=== PATIENT | male | born 1950 | race Caucasian/White ===

== ENCOUNTER 2022-03-29 11:33 | Outpatient (REF) | payer MEDICARE, SELFPAY ==
[2022-03-29 15:24] LABS: HCT 45.4 % (40.0-50.0); HGB 15.4 g/dL (13.5-17.5); MCH 30.4 pg (27.0-33.0); MCHC 33.9 % (32.0-36.0); MCV 90 fL (80-95); MPV 9.5 fL (8.0-11.0); Platelet Count 296 10^3/uL (130-400); RBC 5.06 10^6/uL (4.36-5.78); RDW 13.2 % (11.8-14.1); WBC 10.16 10^3/uL (4.4-10.8)
[2022-03-29 16:23] LABS: ALT 29 U/L (16-63); AST 28 U/L (15-37); Albumin 3.7 g/dL (3.4-5.0); Alkaline Phosphatase 92 U/L (46-116); Anion Gap 9.7 mmol/L (3-11); BUN 11 mg/dL (7-18); Bilirubin, Total 0.5 mg/dL (0.2-1.0); CO2 25.3 mmol/L (21.0-32.0); CREATININE 0.9 mg/dL (0.70-1.30); Calcium 9.1 mg/dL (8.5-10.1); Chloride 102 mmol/L (98-107); Glucose 98 mg/dL (74-106); Potassium 3.9 mmol/L (3.5-5.1); Sodium 137 mmol/L (136-145); Total Protein 7.5 g/dL (6.4-8.2)
== END 2022-03-29 11:34 | disposition home or self-care (01) ==
LOC: NCHCN 11:33
PROVIDERS: Visit Provider Nurse Practitioner Family
DX: R03.0 Elevated blood-pressure reading, without diagnosis of hypertension (principal); I49.9 Cardiac arrhythmia, unspecified; Z72.0 Tobacco use
CPT/HCPCS: 80053; 85027

== ENCOUNTER 2022-05-01 10:12 | Outpatient (REF) | payer MEDICARE, SELFPAY ==
[2022-05-01 15:58] LABS: Calculated LDL 142 mg/dL (<100); Cholesterol 209 mg/dL (<200); HDL Cholesterol 29 mg/dL (40-60); Triglyceride 191 mg/dL (<150)
== END 2022-05-01 10:13 | disposition home or self-care (01) ==
LOC: NCHCN 10:12
PROVIDERS: PCP Family Medicine; Visit Provider Nurse Practitioner Family
DX: R03.0 Elevated blood-pressure reading, without diagnosis of hypertension (principal)
CPT/HCPCS: 80061

== ENCOUNTER 2022-05-08 06:56 | Day surgery (SDC) | payer MEDICARE, SELFPAY ==
[2022-05-08 07:16] VITALS: BP 143/79; PULSE 95; RESP 16; TEMP 36.4; O2SAT 98
[2022-05-08] MEDS: Tropicam./Phenyleph. (1/2.5%) 5 ML BTL OD ×3 (07:26→07:39)
--- NOTE | 2022-05-08 07:50 | ANES.PREOP_ITS ---
General Info Date of Service Date Performed: 05/08/22 Height: 6 ft Weight: 77.5 kg Body Mass Index (BMI): 23.1 Surgical Procedure: Operation Date: 05/08/22 08:40 Proposed Procedure Side Surgeon p Cataract Extraction with IOL Implant Right Ambrose Ba MD Meds Allergies and Home Medications Allergies Allergy/AdvReac Type Severity Reaction Status Date / Time poison papa extract Allergy Severe Skin Rash Unverified 05/08/22 07:15 Home Medication Medication Instructions Recorded clonidine HCl 0.1 mg tablet 0.1 mg PO DAILY PRN 05/04/22 Current Visit Medications: Current Medications Generic Name Dose Route Start Last Admin Trade Name Freq PRN Reason Stop Dose Admin Acetaminophen 1,000 mg 05/08/22 06:00 Acetaminophen 500 Mg Tab PO Q4H PRN PRN Miscellaneous Medication 0 ml 05/08/22 06:00 Prednisolone 1%, Moxifloxacin 0.5%, Nepafenac 0.1% 5ml Btl OD DIRECTED [facility] Miscellaneous Medication 0 ml 05/08/22 06:00 05/08/22 07:39 Tropicam./Phenyleph. (1/2.5%) 5 Ml Btl OD 1 drp DIRECTED DARRYL Administration Tetracaine HCl 0 ml 05/08/22 06:00 Tetracaine 0.5% 4 Ml Btl OD DIRECTED [facility] Medical History Medical History (Updated 05/08/22 @ 08:01 by Ambrose Ba MD) Cataract Elevated BP without diagnosis of hypertension Tobacco Smoking/Tobacco Use Status: Current every day Tobacco Type: cigarettes Alcohol Alcohol Intake: never Substance Use Substance use: Never Substance use type: does not use Vital Signs and Lab Results Vital Signs Most Recent Vital Signs in EMR: Most Recent Vital Signs Temp Pulse Resp BP Pulse Ox 36.4 C L 95 H 16 143/79 H 98 05/08/22 07:16 05/08/22 07:16 05/08/22 07:16 05/08/22 07:16 05/08/22 07:16 Lab Results Blood Type / Crossmatch: No Data to Display Complete Blood Count: No Data to Display Complete Metabolic Panel: No Data to Display Liver Function Panel: No Data to Display Coagulation Panel: No Data to Display Cardiac Panel: No Data to Display Arterial Blood Gas: No Data to Display Venous Blood Gas: No Data to Display Pancreas Panel: No Data to Display Thyroid Panel: No Data to Display Infectious Disease: No Data to Display Blood Cultures: No Data to Display Toxicology Panel: No Data to Display Anesthesia Assessment and Plan Anesthesia History Personal History: No History of General Anesthesia Family History: No Family History of Anesthesia Complications Exercise Tolerance Exercise Tolerance: Metabolic Equivalents>4 Pertinent Negatives Pertinent Negatives: No Symptoms of GERD, No Major Cardiovascular Symptoms or Complaints and No Major Pulmonary Symptoms or Complaints Cardiac & Pulmonary Exam Cardiac Exam: Normal S1/S2 Heart Sounds Pulmonary Exam: Clear Bilateral Breath Sounds Implantable Cardiac Device Does patient have a Pacemaker or an ICD?: No Airway Exam Known Difficult Airway: No Mallampati Class: 1 Mouth Opening: Normal (> 3cm) Thyromental Distance: Greater than 3 cm Neck Range of Motion: Full ROM Neck Circumference: Normal Teeth Condition: Edentulous ASA Classification ASA Score: ASA 2 Emergency Case?: No NPO Status NPO Status: NPO Clears >2 hours, Solids >8 hours Anesthesia Plan Resuscitation Status: Full Code Anesthesia Technique: MAC Anesthesia Airway Planned: Natural Airway Monitors Used: Standard Monitors
[2022-05-08 07:52] VITALS: BMI 23.1
[2022-05-08] MEDS: Tetracaine 0.5% 4 ML BTL OD (08:20)
[2022-05-08] MEDS: Balanced Salt Soln.-PLUS 500 ML BAG (08:21)
[2022-05-08] MEDS: Lidocaine 2% Jelly 6 ML SYR (08:22)
[2022-05-08] MEDS: Povidone-Iodine Ophth 30 ML BTL (08:23)
--- NOTE | 2022-05-08 08:39 | PDOC.DSDIS_ITS ---
Discharge Plan Disposition Patient Disposition: HOME Condition: Good Discharge Details Attending Provider: Ambrose Ba Primary Care Provider: José Miguel Torres [place] Meds and New Rx's Prescriptions: No Action clonidine HCl 0.1 mg Tablet 0.1 mg PO DAILY PRN Discharge Instructions Stand Alone Forms: Post-op Topical Cataract, Sami Rojas (DSU) Discharge Orders Discharge Orders: Discharge Order (Routine); Ordered 05/08/22 Ordered By: Ambrose Ba DS: Diagnosis Discharge Diagnosis (1) Posterior subcapsular age-related cataract, right eye: Status: Resolved (2) Nuclear sclerotic cataract of right eye: Status: Resolved
--- NOTE | 2022-05-08 08:40 | W.PM.OP ---
Date of service: 05/08/22 Time of Service: 08:40 Operative Note Operative Note DATE OF PROCEDURE: 05/08/22 PRE-OP DIAGNOSIS: Nuclear/posterior subcapsular cataract, right eye POST-OP DIAGNOSIS: same PROCEDURE: Cataract extraction using phacoemulsification with intraocular lens implant, right eye SURGEON: Ambrose Ba ANESTHESIA TYPE: Local By Surgeon and MAC Refer to Anesthesia Record ESTIMATED BLOOD LOSS: 0 PATHOLOGY: none sent COMPLICATIONS: None Patient was transported to: same day Patient's condition: stable Implants: Cullen & Cullen/SALO Tecnis [id number] Indications: Progressive visual loss due to cataract, right eye Procedure Description: CATARACT SURGERY OPERATIVE REPORT PREOPERATIVE DIAGNOSIS: 1. Nuclear/posterior subcapsular cataract, right eye POSTOPERATIVE DIAGNOSIS: Same OPERATION: 1. Cataract extraction using phacoemulsification with posterior chamber intraocular lens implant, right eye. IOL: IOL Banana Expert/Model: Cullen & Cullen / SALO Tecnis [id number] IOL Power: + 13.0 diopters IOL Serial Number: [id number] Optic Diameter: 6.0mm Haptic/Overall Diameter: 13.0mm PHACO INFO: Igor Employee [employer] Plansurion Vision System with OZil and Active Fluidics Cumulative Dispersed Energy (CDE): 21.09 seconds SURGEON: Ambrose Ba MD, LYNNE ANESTHESIA: Monitored Anesthesia Care (MAC), with local sub-tenon's anesthetic infiltration COMPLICATIONS: None SPECIMENS: None INDICATIONS FOR PROCEDURE: The patient is a 72-year-old male with history of high myopia who has developed a significant nuclear/posterior subcapsular cataract in the right eye. He feels he is significantly symptomatic that he desires cataract surgery and attempt to improve and maximize his vision. The option of cataract surgery was offered to the patient and he wished to proceed. PROCEDURE: The correct surgical eye was identified and marked as the right eye and the pupil was dilated in the preoperative area using mydriatics and cycloplegics. The dilated pupil size was 7.0 mm. The patient elected to proceed without oral sedation. The patient was brought to the operating room where cardiopulmonary monitoring was instituted and surgical time-out was performed, confirming the correct operative eye and IOL power. Topical anesthesia was administered and ophthalmic povidone-iodine 5% was instilled into the conjunctival fornices. Lidocaine gel was applied to the cornea and the bola-ocular area was prepped with Betadine 10% solution and draped in the usual sterile fashion for intraocular surgery, including an aperture drape. A Tegaderm transparent film dressing was cut in half and used to cover the lashes and lid margins. Care was taken to sequester the lashes and lid margins under the Tegaderm dressing. A lid speculum was placed between the lids of the operative eye and the Igor LuxOR Revalia operating microscope was maneuvered into position. Roger scissors were then used to make a conjunctival buttonhole approximately 6mm posterior to the limbus in the inferonasal quadrant. Blunt dissection was carried out to expose bare sclera, and a blunt-tipped sub-tenon?s anesthesia cannula was introduced and passed posteriorly along the globe where non-preserved plain lidocaine was injected into posterior sub-Tenon?s space. A sideport knife was used to make a paracentesis port inferotemporally. Intraocular phenylephrine/lidocaine was injected into the anterior chamber. The anterior chamber was filled with viscoelastic. A keratome knife was used to construct a 2-plane near-clear corneal tunnel extending 2.0mm into clear cornea superiortemporally. A flap was raised on the anterior capsule and capsulorhexis forceps were used to complete a continuous curvilinear capsulorhexis of 4.8 mm. Constant eye movement was present. A second paracentesis was made to help fixate the eye during capsulorrhexis creation. Balanced salt solution was then used to perform cortical cleaving hydrodissection and nuclear hydrodelineation until the lens could be freely rotated within the capsular bag. The lens nucleus was then disassembled and removed within the capsular bag and iris plane using phacoemulsification. Residual cortical material was removed using the I/A handpiece. The posterior capsule was carefully polished to remove as much residual lens epithelial cells as safely possible. The capsular bag was then inflated and the anterior chamber deepened with viscoelastic. The lens implant described above was inserted into the capsular bag using the SALO [place] Injector. A Kuglen hook was used to dial the IOL into position. Residual viscoelastic was then removed first from posterior to the IOL, then from the anterior chamber using the I/A handpiece. The lens implant was noted to center nicely within the capsular bag. The incisions were stromally hydrated, and the anterior chamber was reformed using BSS. Then 0.5cc of moxifloxacin 1.0mg/ml were injected into the capsular bag and anterior chamber. The incisions were checked with a Weck spear and found to be secure. Several drops of ophthalmic povidone-iodine 5% were then applied to the eye followed by two drops of Imprimis combination prednisolone/moxifloxacin/nepafenac solution. The drapes were removed and a clear plastic protective eye shield was placed over the eye. The patient was then returned to Same Day Surgery in stable condition.
[2022-05-08 08:41] VITALS: BP 125/67; PULSE 82; RESP 16; TEMP 36.3; O2SAT 97
--- NOTE | 2022-05-08 09:13 | W.ANESPOSTOP ---
Postoperative Evaluation Date, Time and Location Date Performed: 05/08/22 Time Performed: 08:50 Patient Location: Day Surgery Unit Vital Signs Most Recent Imported Vital Signs: Most Recent Vital Signs Temp Pulse Resp BP Pulse Ox 36.3 C L 82 16 125/67 97 05/08/22 08:41 05/08/22 08:41 05/08/22 08:41 05/08/22 08:41 05/08/22 08:41 Pain Score Most Recent Pain Score: Most Recent Pain Score Pain Level 0 05/08/22 08:41 Assessment Mental Status: Awake (Alert & Oriented to Patient Baseline) Airway and Respiratory Function: Patent airway with normal (patient baseline) respiratory exam Cardiovascular Function: Hemodynamically Stable Hydration Status: Adequately Hydrated Nausea & Vomiting: No Nausea or Vomiting Pain: Pt. Denies Any Pain Peripheral Nerve Block: Patient did not receive a nerve block
== END 2022-05-08 08:59 | disposition home or self-care (01) ==
PROVIDERS: PCP Family Medicine; Visit Provider Ophthalmology
PROC: (CPT 66984; principal; 2022-05-08 08:30)
DX: H25.041 Posterior subcapsular polar age-related cataract, right eye (principal)
CPT/HCPCS: 66984; V2632

== ENCOUNTER 2022-05-22 08:08 | Day surgery (SDC) | payer MEDICARE, SELFPAY ==
--- NOTE | 2022-05-22 05:10 | W.ANESPRE ---
General Info Date of Service Date Performed: 05/22/22 Height: 6 ft Weight: 77.111 kg Body Mass Index (BMI): 23.0 Surgical Procedure: Operation Date: 05/22/22 09:55 Proposed Procedure Side Surgeon p Cataract Extraction with IOL Implant Left Ambrose Ba MD Meds Allergies and Home Medications Allergies Allergy/AdvReac Type Severity Reaction Status Date / Time poison papa extract Allergy Severe Skin Rash Unverified 05/22/22 08:41 Home Medication Medication Instructions Recorded clonidine HCl 0.1 mg tablet 0.1 mg PO DAILY PRN 05/04/22 atorvastatin 20 mg tablet 20 mg PO HS 05/19/22 Current Visit Medications: Current Medications Generic Name Dose Route Start Last Admin Trade Name Freq PRN Reason Stop Dose Admin Acetaminophen 1,000 mg 05/22/22 06:00 Acetaminophen 500 Mg Tab PO Q4H PRN PRN Miscellaneous Medication 0 ml 05/22/22 06:00 Prednisolone 1%, Moxifloxacin 0.5%, Nepafenac 0.1% 5ml Btl OS DIRECTED DARRYL Miscellaneous Medication 0 ml 05/22/22 06:00 Tropicam./Phenyleph. (1/2.5%) 5 Ml Btl OS DIRECTED DARRYL Tetracaine HCl 0 ml 05/22/22 06:00 Tetracaine 0.5% 4 Ml Btl OS DIRECTED DARRYL PFSH Active Problems Active Problems: Problem Status Onset Code Posterior subcapsular age-related cataract of left eye H25.042 Nuclear sclerotic cataract of left eye H25.12 Nuclear sclerotic cataract of right eye H25.11 Posterior subcapsular age-related cataract, right eye H25.041 Medical History Medical History (Updated 05/21/22 @ 17:58 by Ambrose Ba MD) Cataract Elevated BP without diagnosis of hypertension High cholesterol Surgical History Surgical History (Updated 05/22/22 @ 08:41 by Fadumo Felix) Hx of cataract surgery Tobacco Smoking/Tobacco Use Status: Current every day Tobacco Type: cigarettes Alcohol Alcohol Intake: never Substance Use Substance use: Never Substance use type: does not use Vital Signs and Lab Results Vital Signs Most Recent Vital Signs in EMR: Temp Pulse Resp BP Pulse Ox 36 C L 89 18 122/67 98 05/22/22 08:45 05/22/22 08:45 05/22/22 08:45 05/22/22 08:45 05/22/22 08:45 Lab Results Blood Type / Crossmatch: No Data to Display Complete Blood Count: No Data to Display Complete Metabolic Panel: No Data to Display Liver Function Panel: No Data to Display Coagulation Panel: No Data to Display Cardiac Panel: No Data to Display Arterial Blood Gas: No Data to Display Venous Blood Gas: No Data to Display Pancreas Panel: No Data to Display Thyroid Panel: No Data to Display Infectious Disease: No Data to Display Blood Cultures: No Data to Display Toxicology Panel: No Data to Display Anesthesia Assessment and Plan Anesthesia History Personal History: No History of Anesthesia Complications Family History: No Family History of Anesthesia Complications Exercise Tolerance Exercise Tolerance: Metabolic Equivalents>4 Cardiac & Pulmonary Exam Cardiac Exam: Normal S1/S2 Heart Sounds Pulmonary Exam: Clear Bilateral Breath Sounds Implantable Cardiac Device Does patient have a Pacemaker or an ICD?: No Airway Exam Known Difficult Airway: No Mallampati Class: 1 Mouth Opening: Normal (> 3cm) Thyromental Distance: Greater than 3 cm Neck Range of Motion: Full ROM Neck Circumference: Normal Teeth Condition: Edentulous ASA Classification ASA Score: ASA 2 Emergency Case?: No NPO Status NPO Status: NPO Clears >2 hours, Solids >8 hours Anesthesia Plan Resuscitation Status: Full Code Anesthesia Technique: MAC Anesthesia Airway Planned: Natural Airway Monitors Used: Standard Monitors Preoperative Comments:: 72 yo male for repeat cataract removal. Sig PMHx: HTN, daily smoker. denies interval change. Previous Cat: no MKO. would like to proceed as same.
[2022-05-22 08:40] VITALS: BMI 23.0
[2022-05-22] MEDS: Tropicam./Phenyleph. (1/2.5%) 5 ML BTL OS ×3 (08:43→09:11)
[2022-05-22 08:45] VITALS: BP 122/67; PULSE 89; RESP 18; TEMP 36; O2SAT 98
[2022-05-22] MEDS: Lidocaine 2% Jelly 6 ML SYR (09:41)
[2022-05-22] MEDS: Tetracaine 0.5% 4 ML BTL OS (09:41)
[2022-05-22] MEDS: Balanced Salt Soln.-PLUS 500 ML BAG (09:49)
[2022-05-22] MEDS: Duovisc Viscoelastic System EACH 1 EACH (09:50)
[2022-05-22] MEDS: Povidone-Iodine Ophth 30 ML BTL (09:51)
[2022-05-22] MEDS: Lidocaine 1% Multi-Dose 10 ML VIAL (09:52)
[2022-05-22 10:02] VITALS: BP 112/70; PULSE 82; RESP 16; TEMP 36.6; O2SAT 97
--- NOTE | 2022-05-22 10:03 | PDOC.DSDIS_ITS ---
Discharge Plan Disposition Patient Disposition: HOME Condition: Good Discharge Details Attending Provider: Ambrose Ba Primary Care Provider: José Miguel Torres [place] Meds and New Rx's Prescriptions: No Action clonidine HCl 0.1 mg Tablet 0.1 mg PO DAILY PRN atorvastatin 20 mg Tablet 20 mg PO HS Discharge Instructions Stand Alone Forms: Post-op Topical Cataract, Sami Rojas (DSU) Discharge Orders Discharge Orders: Discharge Order (Routine); Ordered 05/22/22 Ordered By: Ambrose Ba DS: Diagnosis Discharge Diagnosis (1) Nuclear sclerotic cataract of left eye: Status: Resolved (2) Posterior subcapsular age-related cataract of left eye: Status: Resolved
--- NOTE | 2022-05-22 10:03 | ROE_ITS ---
Date of service: 05/22/22 Time of Service: 10:03 Operative Note Operative Note DATE OF PROCEDURE: 05/22/22 PRE-OP DIAGNOSIS: Nuclear/posterior subcapsular cataract, left eye POST-OP DIAGNOSIS: same PROCEDURE: Cataract extraction using phacoemulsification with intraocular lens implant, left eye SURGEON: Ambrose Ba ANESTHESIA TYPE: Local By Surgeon and MAC Refer to Anesthesia Record PATHOLOGY: none sent COMPLICATIONS: None Patient was transported to: same day Patient's condition: stable Implants: Cullen and Cullen / [employer] Tecnis [id number] Indications: Progressive decreased vision due to cataract, left eye Procedure Description: CATARACT SURGERY OPERATIVE REPORT PREOPERATIVE DIAGNOSIS: 1. Nuclear/posterior subcapsular cataract, left eye POSTOPERATIVE DIAGNOSIS: Same OPERATION: 1. Cataract extraction using phacoemulsification with posterior chamber intraocular lens implant, left eye. IOL: IOL General Practitioner/Model: Cullen & Cullen / SALO Tecnis [id number] IOL Power: + 14.5 diopters IOL Serial Number: [id number] Optic Diameter: 6.0 mm Haptic/Overall Diameter: 13.0 mm PHACO INFO: Igor [employer] Protector [employer] Vision System with OZil and Active Fluidics Cumulative Dispersed Energy (CDE): 15.96 seconds SURGEON: Ambrose Ba MD, LYNNE ANESTHESIA: Monitored A [facility] (MAC), with local sub-tenon's anesthetic infiltration COMPLICATIONS: None SPECIMENS: None INDICATIONS FOR PROCEDURE: The patient is a 72-year-old gentleman with history of diminished visual acuity in both eyes secondary to development of bilateral nuclear/posterior subcapsular cataract. Insert undergone cataract surgery in the right eye and is doing well postoperatively. He now presents for cataract surgery in the left eye. PROCEDURE: The correct surgical eye was identified and marked as the left eye and the pupil was dilated in the preoperative area using mydriatics and cycloplegics. The dilated pupil size was 7.0 mm. The patient elected to proceed without oral sedation. The patient was brought to the operating room where cardiopulmonary monitoring was instituted and surgical time-out was performed, confirming the correct operative eye and IOL power. Topical anesthesia was administered and ophthalmic povidone-iodine 5% was instilled into the conjunctival fornices. Lidocaine gel was applied to the cornea and the bola-ocular area was prepped with Betadine 10% solution and draped in the usual sterile fashion for intraocular surgery, including an aperture drape. A Tegaderm transparent film dressing was cut in half and used to cover the lashes and lid margins. Care was taken to sequester the lashes and lid margins under the Tegaderm dressing. A lid speculum was placed between the lids of the operative eye and the Igor LuxOR Revalia operating microscope was maneuvered into position. Roger scissors were then used to make a conjunctival buttonhole approximately 6mm posterior to the limbus in the inferonasal quadrant. Blunt dissection was carried out to expose bare sclera, and a blunt-tipped sub-tenon?s anesthesia cannula was introduced and passed posteriorly along the globe where non- preserved plain lidocaine was injected into posterior sub-Tenon?s space. A sidep ort knife was used to make a paracentesis port superiorly/superiortemporally. Intraocular phenylephrine/lidocaine was injected int the anterior chamber.. The anterior chamber was filled with viscoelastic. A keratome knife was used to construct a 2-plane near-clear corneal tunnel extending 2.0mm into clear cornea temporally. A flap was raised on the anterior capsule and capsulorhexis forceps were used to complete a continuous curvilinear capsulorhexis of 5.0 mm. Balanced salt solution was then used to perform cortical cleaving hydrodissection and nuclear hydrodelineation until the lens could be freely rotated within the capsular bag. The lens nucleus was then disassembled and removed within the capsular bag and iris plane using phacoemulsification. Residual cortical material was removed using the 45-degree angled silicone I/A tip with 0.3mm port. The posterior capsule was carefully polished to remove as much residual lens epithelial cells as safely possible. The capsular bag was then inflated and the anterior chamber deepened with viscoelastic. The lens implant described above was inserted into the capsular bag using the SALO [place] Injector. A Kuglen hook was used to dial the IOL into position. Residual viscoelastic was then removed first from posterior to the IOL, then from the anterior chamber using the I/A handpiece. The lens implant was noted to center nicely within the capsular bag. The incisions were stromally hydrated, and the anterior chamber was reformed using BSS. Then 0.5cc of moxifloxacin 1.0mg/ml were injected into the capsular bag and anterior chamber. The incisions were checked with a Weck spear and found to be secure. Several drops of ophthalmic povidone-iodine 5% were then applied to the eye followed by two drops of Imprimis combination prednisolone/moxifloxacin/nepafenac solution. The drapes were removed and a clear plastic protective eye shield was placed over the eye. The patient was then returned to Same Day Surgery in stable c ondition.
--- NOTE | 2022-05-22 10:36 | W.ANESPOSTOP ---
Postoperative Evaluation Date, Time and Location Date Performed: 05/22/22 Time Performed: 10:15 Patient Location: Day Surgery Unit Vital Signs Most Recent Imported Vital Signs: Most Recent Vital Signs Temp Pulse Resp BP Pulse Ox 36.6 C 82 16 112/70 97 05/22/22 10:02 05/22/22 10:02 05/22/22 10:02 05/22/22 10:02 05/22/22 10:02 Pain Score Most Recent Pain Score: Most Recent Pain Score Pain Level 0 05/22/22 10:02 Assessment Mental Status: Awake (Alert & Oriented to Patient Baseline) Airway and Respiratory Function: Patent airway with normal (patient baseline) respiratory exam Cardiovascular Function: Hemodynamically Stable Hydration Status: Adequately Hydrated Nausea & Vomiting: No Nausea or Vomiting Pain: Pt. Denies Any Pain Peripheral Nerve Block: Patient did not receive a nerve block
== END 2022-05-22 10:26 | disposition home or self-care (01) ==
PROVIDERS: PCP Family Medicine; Visit Provider Ophthalmology
PROC: (CPT 66984; principal; 2022-05-22 09:45)
DX: H25.042 Posterior subcapsular polar age-related cataract, left eye (principal); E78.00 Pure hypercholesterolemia, unspecified
CPT/HCPCS: 66984; V2632

== ENCOUNTER 2023-05-10 19:06 | Outpatient (REF) | payer MEDICARE, SELFPAY ==
[2023-05-10 16:30] LABS: Absolute Eosinophil Count 0.13 10^3/uL (0.0-0.7); Absolute Monocyte Count 1.44 10^3/uL (0.1-0.8); Basophils % 0.6; Eosinophils % 0.8; HCT 39.8 % (40.0-50.0); HGB 12.9 g/dL (13.5-17.5); Immature Grans % 0.6; Lymphocytes % 12.6; MCH 28.2 pg (27.0-33.0); MCHC 32.4 % (32.0-36.0); MCV 87 fL (80-95); Monocytes % 8.6; Neutrophils % 76.8; Platelet Count 396 10^3/uL (130-400); RBC 4.57 10^6/uL (4.36-5.78); RDW-SD 44.6 fL; WBC 16.69 10^3/uL (4.4-10.8)
[2023-05-10 16:33] LABS: Absolute Neutrophil Count 12.82 10^3/uL (1.2-6.7)
[2023-05-10 16:49] LABS: ALT 23 U/L (16-63); AST 16 U/L (15-37); Alkaline Phosphatase 84 U/L (46-116); Anion Gap 8.8 mmol/L (3-11); BUN 10 mg/dL (7-18); Bilirubin, Total 0.5 mg/dL (0.2-1.0); CO2 27.2 mmol/L (21.0-32.0); CREATININE 0.9 mg/dL (0.70-1.30); Calcium 8.7 mg/dL (8.5-10.1); Calculated LDL 52 mg/dL (<100); Chloride 102 mmol/L (98-107); Cholesterol 98 mg/dL (<200); Estimated GFR 90.74 (mL/min/1.73m2); Glucose 115 mg/dL (74-106); HDL Cholesterol 29 mg/dL (40-60); Potassium 4.5 mmol/L (3.5-5.1); Sodium 138 mmol/L (136-145); Total Protein 6.6 g/dL (6.4-8.2); Triglyceride 86 mg/dL (<150)
[2023-05-14 09:02] LABS: PSA, Screening 1.2 ng/mL (<=6.5)
== END 2023-05-10 19:07 | disposition home or self-care (01) ==
LOC: NCHCN 19:06
PROVIDERS: PCP Family Medicine; Visit Provider Nurse Practitioner Family
DX: E78.5 Hyperlipidemia, unspecified (principal); R63.4 Abnormal weight loss; R03.0 Elevated blood-pressure reading, without diagnosis of hypertension; F17.210 Nicotine dependence, cigarettes, uncomplicated; Z12.5 Encounter for screening for malignant neoplasm of prostate
CPT/HCPCS: 80053; 80061; 84153; 84443; 85025

== ENCOUNTER → 2023-05-30 01:12 | Outpatient (CLI) | payer MEDICARE, SELFPAY ==
--- NOTE | 2023-05-30 | DI.CT_ITS ---
Exam(s) CT CHEST/ABD/PEL W EXAM: CT CHEST/ABD/PEL W CLINICAL HISTORY: CONSTIPATION, WT LOSS, TOBACCO USE, ? METS. TECHNIQUE: Imaging Protocol: Axial computed tomography images with coronal and sagittal reformatted images were created and reviewed CONTRAST MATERIAL: Intravenous: Omnipaque 350 Contrast volume:100 ml Oral: yes COMPARISON: No exams were available for comparison FINDINGS: CHEST: Tracheobronchial tree: Patent where visualized. Pulmonary parenchyma: No consolidation or dominant measurable mass. Wqbb-[id number]-zfrdvelq emphysematous c hanges. No suspicious pulmonary nodules. Pleura: No effusion or pneumothorax. Lymph nodes: Within normal limits. Aorta: Thoracic portion non-dilated. Severe atherosclerotic changes. Heart: Left ventricular and left atrial dilatation. Coronary artery calcifications. No pericardial effusion. Esophagus: Mid to distal esophagus markedly thickened, over 13 cm and cm length. There is contrast s een within the esophagus. The lumen is markedly irregular. Finding may indicate severe esophagitis malignancy not excluded. No varices identified. Bones: Degenerative changes. No lytic or blastic lesions.No compression fractures. ABDOMEN and PELVIS: Liver: Normal density. No measurable mass. Gallbladder and biliary tract: No evidence of stones or wall thickening. No biliary dilatation. Pancreas: Normal density, no abnormal calcifications or inflammatory process. Spleen: Normal. Kidneys: Normal size, contour and axis. No radiodense stones or obstructive uropathy. No suspicious m asses seen. Adrenal glands: Left adrenal gland mildly prominent without visible focal mass. Aorta: Abdominal portion non-dilated. Severe atherosclerotic changes. Lymph nodes: Within normal limits. Soft tissues: Unremarkable. Bladder: Unremarkable. Bowel: No obstruction or bowel wall thickening. Large quantity of stool. No colonic mass visible. Peritoneal cavity: No ascites. No focal collection or mesenteric inflammatory response. Bones: Degenerative disc changes and facet degenerative changes in the spine. Reproductive organs: Within normal limits. IMPRESSION: Marked wall thickening and mucosal irregularity involving the mid to distal esophagus. Contrast is se en within the saphenous indicating reflux. Findings could indicate severe esophagitis. Malignancy not excluded. No evidence of metastatic disease in the chest abdomen part or pelvis. Large quantity of stool consistent with constipation. RADIATION DOSE DELIVERED: 1,371.01mGy.cm Total DLP DATA REPOSITORY: All CT scans at this facility are submitted to the National Radiology Data Registry (NRDR) Dose Index Registry (DIR) with the [employer] (ACR). RADIATION OPTIMIZATION: All CT scans at this facility use at least one of these dose optimization te chniques: automated exposure control; mA and/or kV adjustment per patient size (includes targeted exa ms where dose is matched to clinical indication); or iterative reconstruction.
[2023-05-30] MEDS: Barium Sulfate 2% W/V-Creamy Vanilla Smoothie 450 ML BTL PO (08:58)
[2023-05-30] MEDS: Omnipaque 350 MG/ML 500 ML BTL-Imaging package IJ (11:01)
[2023-05-30] MEDS: Normal Saline Flush 10 ML SYR IVP (11:02)
== END ==
PROVIDERS: PCP Family Medicine; Visit Provider Physician Assistant
DX: K59.00 Constipation, unspecified (principal); R93.3 Abnormal findings on diagnostic imaging of other parts of digestive tract; F17.210 Nicotine dependence, cigarettes, uncomplicated; R63.4 Abnormal weight loss
CPT/HCPCS: 74177; 71260

== ENCOUNTER → 2023-06-06 13:00 | Outpatient (BNVA) | payer MEDICARE, SELFPAY | PROVIDERS: PCP Family Medicine; Referring Provider Nurse Practitioner Family; Visit Provider Surgery | DX: R63.4 Abnormal weight loss (principal) | CPT/HCPCS: 99203 ==

== ENCOUNTER 2023-06-20 09:22 | Day surgery (SDC) | payer MEDICARE, SELFPAY ==
--- NOTE | 2023-06-20 06:58 | W.PM.PROGNOT ---
Date of Service Date of service: 06/20/23 Time of Service: 10:34 Assessment and Plan Assessment and plan (1) Weight loss, abnormal: Status: Acute Assessment and plan: From chart: Based on the unanticipated weight loss, and abnormality seen on the CAT scan, I think that esophageal cancer is probably the leading diagnosis here.? The change in his bowel habits are interesting, but seems probably more functional rather than obstructive in nature.? We talked about the role of EGD as well as colonoscopy and the definitive work-up.? I think the most important thing right now is to expedite the EGD.? In that regards, we can make arrangements to schedule him with one of my partners as we can accommodate that around his travel schedule complicate his bowel prep quite a bit.? Assuming the EGD makes a diagnosis, that is probably reasonable to forego colonoscopy at that point. I discussed the proceedure with the patient in detail as well as the possible risks, benefits and complications. I did review his CT scan today as well. Risks, benefits and complications have been reviewed. Complications include but are not limited to bleeding, pain, perforation, sore throat, aspiration, and adverse reaction to the medications. Questions were entertained and answered to their satisfaction and they wished to proceed. No guarantees were given or implied. Proceed with EGD under sedation Subjective Subjective Interval history since last seen: From chart: It is very nice to meet Joel in the office.? He is 73 years old, and he is referred here for unanticipated weight loss.? He tells me he was in his usual state of health up until about a year ago, when a friend became diagnosed with cancer.? Around that time, the patient experienced a significant amount of stress at home, and feels like he was not taking care of himself.? He thinks over the past few months, he has lost about 30 pounds.? He denies melena, hematochezia, dyspepsia or dysphagia.? He has been experiencing a little bit of constipation over the past few months as well.? Whereas he used to move his bowels every day 1 single time per day, now he has bowel movements every 2 to 3 days, and sometimes requires the assistance of a laxative.? He denies any family history of gastrointestinal diseases. I was able to review his CT scan today.? There does appear to be significant pathology at the gastroesophageal junction. He is an active tobacco smoker, and is currently smoking a little less than a pack a day. Patient is seen in same-day surgery prior to his procedure. He has not had any new symptoms. he denies dysphagia. I reviewed CT scan today. Exam Const General: cooperative, comfortable and no acute distress Nutritional Appearance: thin Orientation: alert and oriented x3 HENMT Head: normocephalic and atraumatic Resp Effort & Inspection: normal respiratory effort Auscultation: clear to auscultation bilaterally Cardio Rate: regular rate Rhythm: regular rhythm GI Inspection: normal to inspection Palpation: soft, no hepatosplenomegaly and nontender Time Spent with Patient Time Spent with Patient: <25 minutes Time was spent: counseling the patient
--- NOTE | 2023-06-20 07:02 | ENDO_ITS ---
Date of service: 06/20/23 Time of Service: 10:54 Endoscopy Report DATE OF PROCEDURE: 06/20/23 PRE-OP DIAGNOSIS: unintentional weight loss POST-OP DIAGNOSIS: other (esophageal mass) PROCEDURE: EGD with biopsies SURGEON: April De Leon ANESTHESIA TYPE: General:No Airway ESTIMATED BLOOD LOSS: 10 PATHOLOGY: other (Bx of esophagus at 40 , 38,35, 32 and 30 cm) COMPLICATIONS: None DISPOSITION: same day INDICATIONS: Mr. Acosta is a pleasant 73-year-old gentleman who comes in to the office with unintentional weight loss and an abnormal appearing CT scan. CT scan is worrisome for malignancy in the esophagus. I reviewed the procedure of EGD with biopsies with him in same-day surgery. We reviewed the possible complications. At the end of our conversation he had a good understanding of the possible complications as well as the procedure. He did not have any more questions and wished to proceed. FINDINGS: The esophagus had a white discharge almost the entire way. From 30 cm down to 40 cm there were multiple large polyps/masses. The largest mass was at the GE junction. They all bled quite easily. Also noted was a little bit of food above the 30 cm josé manuel. PROCEDURE DESCRIPTION: After informed consent was obtained the patient was take to the procedure room and placed in a supine position. Monitors were applied and a time out was done. The patients name, date of , procedure type, allergies to medications and metal in their body was reviewed. A bite block was placed and the patient was sedated. Once sedated and comfortable the gastroscope was advanced through the oropharynx which was grossly normal into the esophagus. There was a white coating to the esophagus suspicious for rudi infection. In the distal esophagus there was a large mass noted. The scope was advanced into the stomach and through the pylorus into the 3rd portion of the duodenum. The duodenum was noted to be normal. The scope was retracted back into the stomach, which was also normal The scope was retroflexed. The cardia and fundus were noted to be normal. There was no hiatal hernia noted. The scope was retracted back into the esophagus and biopsies were done of the mass and esophagus at 40, 38, 35, 32 and 30 cm. The Z line was irregular circumferentially. The GE junction was at 40 cm. The scope was removed and the patient was woken up and taken back to [facility] in stable condition.
--- NOTE | 2023-06-20 07:04 | W.PM.DSUDISC ---
Date of service: 06/20/23 Time of Service: 11:32 Discharge Plan Disposition Patient Disposition: Home Condition: Stable Discharge Details Reason For Visit: unintentional weight loss Attending Provider: April De Leon Primary Care Provider: LALITHA MAR Home Meds and New Rx's Prescriptions: Continued docusate sodium 100 mg tablet 100 mg PO DAILY polyethylene glycol 3350 [Miralax] 17 gram powder in packet 17 g PO DAILY varenicline 0.5 mg (11)- 1 mg (42) tablets,dose pack See Rx Instructions PO PER PKG DIR Rx Instructions: PO PER PKG DIR clonidine HCl 0.1 mg Tablet 0.1 mg PO DAILY PRN atorvastatin 20 mg Tablet 20 mg PO HS Discharge Instructions Instructions: High Protein / High Calorie Diet (DC) Additional Instructions: Findings: There was a mass in the esophagus Follow up: I will call you with the biopsy results Other: I will send referals to thoracic surgery to discuss treatment Diet: high protein diet and soft. Avoid bread and dry beef. Drink 2 Boosts daily Please call if you develop: fevers >101.5 Nausea or Vomiting Abdominal pain that is not transient Rectal bleeding that is more then a tbsp A hard abdomen and inability to pass gas DAY SURGERY UNIT POST ENDOSCOPY INSTRUCTIONS Instructions for everyone who is given Anesthesia: For your safety, please do the following for the next 24 Hours: a. Do not drive or operate dangerous equipment b. Do not drink alcohol beverages or use any recreational drugs for the first 24 hours or while taking pain medications. The medications in your body may have a reaction that can be dangerous. c. Do not make any important decisions or sign any important papers 1. Generally there are no restrictions on your activity after a day or so has gone by, but you may feel a bit fatigued for a few days. 2. After you arrive home you may have a light meal and return to a normal diet as you can tolerate it without feeling sick to your stomach. 3. After surgery, you may feel pain or discomfort. This should be only transient, but if it persists please contact your doctor. 4. If there are any questions regarding the findings of your procedure, please feel free to contact your doctor. 6. If you are unable to contact your doctor with a problem, contact the hospital at [phone]. 7. Continue all your regular medications unless directed otherwise. I understand the above instructions and have no questions. Signature of Patient or Responsible Adult Escort Date/Time Name of Responsible Adult Escort Signature of Nurse Date/Time Stand Alone Forms: Anesthesia Discharge Inst., Sami Rojas (DSU) Activity:: Activity as Tolerated Diet:: see above Discharge Orders Discharge Orders: Discharge Order (Routine); Ordered 06/20/23 Ordered By: April De Leon DS: Diagnosis Discharge Diagnosis (1) Weight loss, abnormal: Status: Acute Asessment and Plan: Patient is seen and examined after their endoscopy. Patient has minimal sore throat. They have been able to tolerate liquids. They do not have any Nausea or Vomiting. They are not having any chest pain or shortness of breath. They have been able to pass gas and are not having any abdominal pain or distention. they have not vomited any blood. The vital signs have been stable-see nursing notes. We discussed findings on their endoscopy We reviewed the importance of lifestyle modifications- see diet recommendations We reviewed any new medications that the patient may be prescribed- see medicine reconciliation. Patient will either be sent a letter with the biopsy results or follow up in the office- see discharge instructions Patient was given explicit instructions for emergency follow up post endoscopy- see discharge instructions Patient verbalized understanding and was discharged in stable and satisfactory condition. See nursing notes.
[2023-06-20 09:25] VITALS: BP 133/70; PULSE 94; RESP 20; TEMP 36.4; O2SAT 99
[2023-06-20] MEDS: Lactated Ringers 1,000 ML 80 ML IV (09:53)
--- NOTE | 2023-06-20 10:15 | W.ANESPRE ---
General Info Date of Service Date Performed: 06/20/23 Height: 5 ft 8 in Weight: 65.317 kg Body Mass Index (BMI): 21.9 Surgical Procedure: Operation Date: 06/20/23 10:05 Proposed Procedure Side Surgeon p Gastroscopy April De Leon MD Meds Allergies and Home Medications Allergies Allergy/AdvReac Type Severity Reaction Status Date / Time poison papa extract Allergy Severe Skin Rash Verified 06/20/23 09:40 Home Medication Medication Instructions Recorded clonidine HCl 0.1 mg tablet 0.1 mg PO DAILY PRN 05/04/22 atorvastatin 20 mg tablet 20 mg PO HS 05/19/22 varenicline 0.5 mg (11)-1 mg (42) See Rx Instructions PO PER PKG DIR 06/04/23 tablets in a dose pack docusate sodium 100 mg tablet 100 mg PO DAILY 06/06/23 polyethylene glycol 3350 17 gram 17 g PO DAILY 06/06/23 oral powder packet (Miralax) Current Visit Medications: Current Medications Generic Name Dose Route Start Last Admin Trade Name Diego PRN Reason Stop Dose Admin Ringer's Solution 1,000 mls @ 80 mls/hr 06/20/23 06:00 06/20/23 09:53 IV 07/19/23 23:59 80 mls/hr INFUSION DARRYL Administration IV Miscellaneous Supplies 1 each 06/20/23 06:00 Iv Access IV 07/19/23 23:59 DIRECTED DARRYL Ondansetron HCl 4 mg 06/20/23 07:03 Ondansetron 4 Mg/2 Ml Vial IVP 07/20/23 07:02 Q4H PRN PRN Nausea / Vomiting Sodium Chloride 0 ml 06/20/23 06:00 Normal Saline Flush 10 Ml Syr IV 07/19/23 23:59 PRN PRN Sodium Chloride 0 ml 06/20/23 06:00 Normal Saline 10 Ml Vial IJ 07/19/23 23:59 DIRECTED PRN Sterile Water 0 ml 06/20/23 06:00 Water,Injection,Sterile 10 Ml Vial IJ 07/19/23 23:59 DIRECTED PRN PFSH Active Problems Active Problems: Problem Status Onset Code Constipation K59.00 Inguinal hernia, right K40.90 Weight loss, abnormal R63.4 Mild acid reflux K21.9 Nuclear sclerotic cataract of right eye H25.11 Posterior subcapsular age-related cataract, right eye H25.041 Nuclear sclerotic cataract of left eye H25.12 Posterior subcapsular age-related cataract of left eye H25.042 Medical History Medical History Cataract Dyslipidemia Elevated BP without diagnosis of hypertension High cholesterol Irregular cardiac rhythm Tobacco use Surgical History Surgical History Hx of cataract surgery Tobacco Smoking/Tobacco Use Status: Current every day Tobacco Type: cigarettes Alcohol Alcohol Intake: never Substance Use Substance use: Never Substance use type: does not use Vital Signs and Lab Results Vital Signs Most Recent Vital Signs in EMR: Most Recent Vital Signs Temp Pulse Resp BP Pulse Ox 36.4 C L 94 H 20 133/70 99 06/20/23 09:25 06/20/23 09:25 06/20/23 09:25 06/20/23 09:25 06/20/23 09:25 Lab Results Blood Type / Crossmatch: No Data to Display Complete Blood Count: No Data to Display Complete Metabolic Panel: No Data to Display Liver Function Panel: No Data to Display Coagulation Panel: No Data to Display Cardiac Panel: No Data to Display Arterial Blood Gas: No Data to Display Venous Blood Gas: No Data to Display Pancreas Panel: No Data to Display Thyroid Panel: No Data to Display Infectious Disease: No Data to Display Blood Cultures: No Data to Display Toxicology Panel: No Data to Display Anesthesia Assessment and Plan Anesthesia History Personal History: No History of Anesthesia Complications Family History: No Family History of Anesthesia Complications Exercise Tolerance Exercise Tolerance: Metabolic Equivalents>4 Pertinent Negatives Pertinent Negatives: No Symptoms of GERD, No Major Cardiovascular Symptoms or Complaints, No Major Pulmonary Symptoms or Complaints and No History of CVA/TIA Cardiac & Pulmonary Exam Cardiac Exam: Normal S1/S2 Heart Sounds Pulmonary Exam: Clear Bilateral Breath Sounds Implantable Cardiac Device Does patient have a Pacemaker or an ICD?: No Airway Exam Known Difficult Airway: No Mallampati Class: 1 Mouth Opening: Normal (> 3cm) Thyromental Distance: Greater than 3 cm Neck Range of Motion: Full ROM Neck Circumference: Normal Teeth Condition: Edentulous ASA Classification ASA Score: ASA 2 Emergency Case?: No NPO Status NPO Status: NPO Clears >2 hours, Solids >8 hours Anesthesia Plan Resuscitation Status: Full Code Anesthesia Technique: General Anesthesia Airway Planned: Natural Airway Monitors Used: Standard Monitors
[2023-06-20 10:22] VITALS: BMI 21.9
--- NOTE | 2023-06-20 10:46 | ESO_PTH ---
PATIENT: Joel Acosta LOC: [facility] U#:[id number] AGE/SX: 73/M ROOM: RE06/20/[address]: April De Leon MD : 1950 BED: DIS: 06/20/2023 SPEC #: [id number] RECD: 06/20/23 12:54 STATUS: KEEGAN HDZ #: [id number] RICH: 06/20/23 10:[address]: April De Leon DEPT: Surgical Specimen RECD BY: Ju Martinez ENTERED: 06/20/23 12:55 SP TYPE: Shin LEMUS DR: LALITHA MAR, APPARATUS ENGINEERING TECHNOLOGIST Tissues: 1 - ESOPHAGUS BIOPSY 2 - ESOPHAGUS BIOPSY 3 - ESOPHAGUS BIOPSY 4 - ESOPHAGUS BIOPSY 5 - ESOPHAGUS BIOPSY Procedures: GROSS AND MICRO LEVEL 4 IMMUNOPEROXIDASE STAIN Comments: [id number]
[2023-06-20 11:05] VITALS: BP 96/57; PULSE 84; RESP 16; TEMP 36.5; O2SAT 98
[2023-06-20 11:18] VITALS: BP 100/72; PULSE 86; RESP 18; O2SAT 99
[2023-06-20 11:33] VITALS: BP 123/61; PULSE 81; RESP 18; TEMP 36.7; O2SAT 98
--- NOTE | 2023-06-20 12:02 | W.ANESPOSTOP ---
Postoperative Evaluation Date, Time and Location Date Performed: 06/20/23 Time Performed: 11:30 Patient Location: Day Surgery Unit Vital Signs Most Recent Imported Vital Signs: Most Recent Vital Signs Temp Pulse Resp BP Pulse Ox 36.7 C 81 18 123/61 98 06/20/23 11:33 06/20/23 11:33 06/20/23 11:33 06/20/23 11:33 06/20/23 11:33 Pain Score Most Recent Pain Score: Most Recent Pain Score Pain Level 0 06/20/23 11:33 Assessment Mental Status: Awake (Alert & Oriented to Patient Baseline) Airway and Respiratory Function: Patent airway with normal (patient baseline) respiratory exam Cardiovascular Function: Hemodynamically Stable Hydration Status: Adequately Hydrated Nausea & Vomiting: No Nausea or Vomiting Pain: Pt. Denies Any Pain Peripheral Nerve Block: Patient did not receive a nerve block
== END 2023-06-20 12:02 | disposition home or self-care (01) ==
PROVIDERS: PCP Nurse Practitioner Family; Visit Provider Surgery
PROC: 0DJ68ZZ Inspection of Stomach, Via Natural or Artificial Opening Endoscopic (ICD-10-PCS; CPT 43235; principal; 2023-06-20 10:00)
DX: R63.4 Abnormal weight loss (principal); K22.89 Other specified disease of esophagus; C15.9 Malignant neoplasm of esophagus, unspecified
CPT/HCPCS: 43239; 88305; 88361

== ENCOUNTER 2023-08-20 05:07 | Outpatient (CLI) | payer MEDICARE, SELFPAY ==
[2023-08-20 08:37] LABS: Abs Immature Grans 0.08 10^3/uL (0.0-0.06); Absolute Basophil Count 0.08 10^3/uL (0.0-0.2); Absolute Lymphocyte Count 2.89 10^3/uL (1.2-3.4); Basophils % 0.5; Eosinophils % 1.3; HCT 41.1 % (40.0-50.0); Immature Grans % 0.5; Lymphocytes % 19.2; MCH 27.4 pg (27.0-33.0); MCHC 31.6 % (32.0-36.0); MCV 87 fL (80-95); MPV 8.2 fL (8.0-11.0); Monocytes % 8.2; Neutrophils % 70.3; Platelet Count 326 10^3/uL (130-400); RBC 4.74 10^6/uL (4.36-5.78); RDW 15.5 % (11.8-14.1); RDW-SD 49.1 fL; WBC 15.05 10^3/uL (4.4-10.8)
[2023-08-20 08:38] LABS: Absolute Monocyte Count 1.23 10^3/uL (0.1-0.8); Absolute Neutrophil Count 10.58 10^3/uL (1.2-6.7)
[2023-08-20 08:52] LABS: ALT 24 U/L (16-63); AST 18 U/L (15-37); Albumin 2.6 g/dL (3.4-5.0); Alkaline Phosphatase 82 U/L (46-116); Anion Gap 8.4 mmol/L (3-11); BUN 14 mg/dL (7-18); Bilirubin, Total 0.4 mg/dL (0.2-1.0); CO2 29.6 mmol/L (21.0-32.0); Chloride 101 mmol/L (98-107); Estimated GFR 79.97 (mL/min/1.73m2); Glucose 122 mg/dL (74-106); Magnesium 1.9 mg/dL (1.8-2.4); Potassium 4.6 mmol/L (3.5-5.1); Sodium 139 mmol/L (136-145)
== END 2023-08-20 05:08 | disposition home or self-care (01) ==
LOC: LBO 05:07
PROVIDERS: PCP Nurse Practitioner Family; Visit Provider Internal Medicine Medical Oncology
DX: C15.5 Malignant neoplasm of lower third of esophagus (principal)
CPT/HCPCS: 36415; 80053; 83735; 85025

== ENCOUNTER 2023-08-27 03:51 | Outpatient (CLI) | payer MEDICARE, SELFPAY ==
[2023-08-27 08:08] LABS: Abs Immature Grans 0.22 10^3/uL (0.0-0.06); Absolute Basophil Count 0.08 10^3/uL (0.0-0.2); Absolute Eosinophil Count 0.17 10^3/uL (0.0-0.7); Absolute Lymphocyte Count 1.06 10^3/uL (1.2-3.4); Absolute Monocyte Count 0.84 10^3/uL (0.1-0.8); Absolute Neutrophil Count 7.13 10^3/uL (1.2-6.7); Basophils % 0.8; Eosinophils % 1.8; HCT 37.5 % (40.0-50.0); HGB 11.9 g/dL (13.5-17.5); Immature Grans % 2.3; Lymphocytes % 11.2; MCH 27.3 pg (27.0-33.0); MCHC 31.7 % (32.0-36.0); MCV 86 fL (80-95); MPV 8.6 fL (8.0-11.0); Monocytes % 8.8; Neutrophils % 75.1; Platelet Count 243 10^3/uL (130-400); RBC 4.36 10^6/uL (4.36-5.78)
[2023-08-27 08:25] LABS: ALT 20 U/L (16-63); AST 15 U/L (15-37); Albumin 2.4 g/dL (3.4-5.0); Alkaline Phosphatase 64 U/L (46-116); Anion Gap 6.4 mmol/L (3-11); BUN 13 mg/dL (7-18); Bilirubin, Total 0.7 mg/dL (0.2-1.0); CO2 28.6 mmol/L (21.0-32.0); CREATININE 0.9 mg/dL (0.70-1.30); Calcium 8.6 mg/dL (8.5-10.1); Chloride 101 mmol/L (98-107); Estimated GFR 90.74 (mL/min/1.73m2); Glucose 129 mg/dL (74-106); Magnesium 1.9 mg/dL (1.8-2.4); Potassium 4.1 mmol/L (3.5-5.1); Sodium 136 mmol/L (136-145); Total Protein 6.3 g/dL (6.4-8.2)
== END 2023-08-27 03:52 | disposition home or self-care (01) ==
LOC: LBO 03:52
PROVIDERS: PCP Nurse Practitioner Family; Visit Provider Internal Medicine Medical Oncology
DX: C15.5 Malignant neoplasm of lower third of esophagus (principal)
CPT/HCPCS: 36415; 80053; 83735; 85025

== ENCOUNTER 2023-09-04 08:44 | Outpatient (CLI) | payer MEDICARE, SELFPAY ==
[2023-09-04 08:10] LABS: Abs Immature Grans 0.05 10^3/uL (0.0-0.06); Absolute Basophil Count 0.06 10^3/uL (0.0-0.2); Absolute Eosinophil Count 0.02 10^3/uL (0.0-0.7); Absolute Lymphocyte Count 0.71 10^3/uL (1.2-3.4); Absolute Monocyte Count 0.96 10^3/uL (0.1-0.8); Absolute Neutrophil Count 5.46 10^3/uL (1.2-6.7); Basophils % 0.8; Eosinophils % 0.3; HCT 33.4 % (40.0-50.0); HGB 10.8 g/dL (13.5-17.5); Immature Grans % 0.7; Lymphocytes % 9.8; MCH 28.1 pg (27.0-33.0); MCHC 32.3 % (32.0-36.0); MCV 87 fL (80-95); MPV 8.4 fL (8.0-11.0); Monocytes % 13.2; Neutrophils % 75.2; Platelet Count 221 10^3/uL (130-400); RBC 3.84 10^6/uL (4.36-5.78); RDW 15.1 % (11.8-14.1); RDW-SD 47.5 fL; WBC 7.26 10^3/uL (4.4-10.8)
[2023-09-04 08:34] LABS: ALT 19 U/L (16-63); AST 16 U/L (15-37); Albumin 2.3 g/dL (3.4-5.0); Alkaline Phosphatase 58 U/L (46-116); Anion Gap 6.3 mmol/L (3-11); BUN 10 mg/dL (7-18); Bilirubin, Total 0.6 mg/dL (0.2-1.0); CO2 28.7 mmol/L (21.0-32.0); CREATININE 0.8 mg/dL (0.70-1.30); Calcium 8.5 mg/dL (8.5-10.1); Chloride 100 mmol/L (98-107); Estimated GFR 94.03 (mL/min/1.73m2); Glucose 123 mg/dL (74-106); Magnesium 1.8 mg/dL (1.8-2.4); Sodium 135 mmol/L (136-145); Total Protein 6.2 g/dL (6.4-8.2)
== END 2023-09-04 08:45 | disposition home or self-care (01) ==
LOC: LBO 08:44
PROVIDERS: PCP Nurse Practitioner Family; Visit Provider Internal Medicine Medical Oncology
DX: C15.5 Malignant neoplasm of lower third of esophagus (principal)
CPT/HCPCS: 36415; 80053; 83735; 85025

== ENCOUNTER 2023-09-11 10:10 | Outpatient (CLI) | payer MEDICARE, SELFPAY ==
[2023-09-11 08:11] LABS: Abs Immature Grans 0.07 10^3/uL (0.0-0.06); Absolute Basophil Count 0.05 10^3/uL (0.0-0.2); Absolute Eosinophil Count 0.02 10^3/uL (0.0-0.7); Absolute Lymphocyte Count 0.51 10^3/uL (1.2-3.4); Absolute Neutrophil Count 3.77 10^3/uL (1.2-6.7); Eosinophils % 0.4; HGB 11.3 g/dL (13.5-17.5); Immature Grans % 1.4; MCH 27.8 pg (27.0-33.0); MCHC 32.3 % (32.0-36.0); MCV 86 fL (80-95); MPV 8.3 fL (8.0-11.0); Monocytes % 13.7; Neutrophils % 73.5; Platelet Count 210 10^3/uL (130-400); RBC 4.07 10^6/uL (4.36-5.78); RDW 15.2 % (11.8-14.1); RDW-SD 46.3 fL; WBC 5.12 10^3/uL (4.4-10.8)
[2023-09-11 08:27] LABS: ALT 27 U/L (16-63); AST 16 U/L (15-37); Albumin 2.3 g/dL (3.4-5.0); Alkaline Phosphatase 63 U/L (46-116); Anion Gap 9.7 mmol/L (3-11); BUN 11 mg/dL (7-18); Bilirubin, Total 0.8 mg/dL (0.2-1.0); CO2 27.3 mmol/L (21.0-32.0); CREATININE 0.9 mg/dL (0.70-1.30); Calcium 8.9 mg/dL (8.5-10.1); Chloride 98 mmol/L (98-107); Estimated GFR 90.74 (mL/min/1.73m2); Glucose 138 mg/dL (74-106); Magnesium 1.7 mg/dL (1.8-2.4); Potassium 4.3 mmol/L (3.5-5.1); Sodium 135 mmol/L (136-145); Total Protein 6.5 g/dL (6.4-8.2)
== END 2023-09-11 10:11 | disposition home or self-care (01) ==
LOC: LBO 10:10
PROVIDERS: PCP Nurse Practitioner Family; Visit Provider Internal Medicine Medical Oncology
DX: C15.5 Malignant neoplasm of lower third of esophagus (principal)
CPT/HCPCS: 36415; 80053; 83735; 85025

== ENCOUNTER 2023-09-13 09:17 | Day surgery (SDC) | payer MEDICARE, SELFPAY ==
--- NOTE | 2023-09-13 07:12 | HPE_ITS ---
Assessment and Plan Assessment and plan (1) Esophageal cancer: Status: Acute Assessment and plan: We reviewed the plan for insertion of a subcutaneous Mediport today, and I reviewed the risks and the benefits of the procedure. I think he has a good un derstanding of the nature of the procedure. Will try the right side to preserve the left subclavian area in the case that he would never need access to that site for surgical treatment of esophageal cancer. History of Present Illness History of Present Illness Chief Complaint: Esophageal cancer Narrative: Joel 73 years old, over the past several months has been experiencing unanticipated weight loss. He underwent a CAT scan of the torso that demonstrated some esophageal wall thickening concerning for esophageal cancer. He underwent a EGD in June that confirmed that diagnosis. He is here for insertion of a Mediport for chemotherapy. PFSH All Active Problems Esophageal cancer (Acute) Constipation (Acute) Inguinal hernia, right (Acute) Weight loss, abnormal (Acute) Mild acid reflux (Acute) Medical History Tobacco use Irregular cardiac rhythm Dyslipidemia High cholesterol Cataract Elevated BP without diagnosis of hypertension Surgical History History of esophagogastroduodenoscopy (~06/20/23) Hx of cataract surgery Social History Smoking/Tobacco Use Status: Former Tobacco Use Quit Date: 08/18/23 Smoking risk assessment performed?: Yes Alcohol Intake: never Drug use: Never Substance use type: does not use Housing: house Current gender identity: female Do you feel safe at home: Yes Do you feel safe in your relationship?: Yes Meds Allergies and Home Medications Allergies Allergy/AdvReac Type Severity Reaction Status Date / Time poison papa extract Allergy Severe Skin Rash Verified 09/13/23 10:38 Home Medications Medication Instructions Recorded Confirmed Type clonidine HCl 0.1 mg tablet 0.1 mg PO DAILY PRN 05/04/22 09/13/23 History atorvastatin 20 mg tablet 20 mg PO HS 05/19/22 09/13/23 History varenicline 0.5 mg (11)-1 mg (42) See Rx Instructions PO PER PKG DIR 06/04/23 06/20/23 History tablets in a dose pack docusate sodium 100 mg tablet 100 mg PO DAILY 06/06/23 06/20/23 History polyethylene glycol 3350 17 gram 17 g PO DAILY 06/06/23 09/13/23 History oral powder packet (Miralax) Exam Const General: cooperative and not in acute distress Nutritional Appearance: underweight Neck Neck: normal visual inspection, no lymphadenopathy and supple Thyroid: thyroid normal Resp Effort & Inspection: normal respiratory effort Auscultation: clear to auscultation bilaterally Cardio Jugular venous pressure: no JVD Rate: regular rate Rhythm: regular rhythm Heart Sounds: S1 normal and S2 normal GI Inspection: normal to inspection Palpation: soft, no guarding, no hernias and nontender Percussion: normal to percussion Auscultation: normal bowel sounds Neuro General: patient alert, patient awake and patient oriented x3 Psych Appearance: grossly normal
--- NOTE | 2023-09-13 07:15 | W.PM.DSUDISC ---
Date of service: 09/13/23 Time of Service: 12:21 Discharge Plan Disposition Patient Disposition: Home Condition: Good Discharge Details Reason For Visit: Mediport insertion Attending Provider: Kris Burr Primary Care Provider: LALITHA MAR Home Meds and New Rx's Prescriptions: Continued docusate sodium 100 mg tablet 100 mg PO DAILY Patient Comments: Pt states has not started polyethylene glycol 3350 [Miralax] 17 gram powder in packet 17 g PO DAILY varenicline 0.5 mg (11)- 1 mg (42) tablets,dose pack See Rx Instructions PO PER PKG DIR Patient Comments: Patient is not using. Rx Instructions: PO PER PKG DIR clonidine HCl 0.1 mg Tablet 0.1 mg PO DAILY PRN atorvastatin 20 mg Tablet 20 mg PO HS Discharge Instructions Additional Instructions: Joel we were able to place your Mediport catheter on your right chest wall like we talked about before the procedure. Everything went very smoothly. You have some stitches under the incision site holding everything in place. There is also some skin glue over the incision. This can be left open to the air without any bandaging. It is okay to shower tomorrow morning. The port can be accessed as early as 24 hours from now. I would expect to have some bruising in the area, and a little bit of tenderness. Tylenol and ibuprofen will help with any pain. I would also encourage you to use some ice packs over the area as needed. Typically I tell patients to leave them in place for about 15 minutes, then take them off for about an hour, and repeat this as needed for discomfort. If you find that the pain becomes too much for [id number] medications, please let me know and I am happy to provide a prescription if needed. You do not need to arrange a specific follow-up appointment with me in the office, however, if you have any questions or concerns about the catheter at all please do not hesitate to let me know at any point. I would also like to know if you notice any bright red discoloration or increasing tenderness around the incision site in the days to come. The nurses to access the catheter will also be very useful in terms of monitoring it. 1. Resume all of your medications. 2. Okay to use tylenol and ibuprofen over the counter as needed for pain 3. Leave the incision sites open to air. 4. Tomorrow, shower with warm soapy water. Pat dry. Use a bandaid if needed to protect your clothing. 5. No soaking or tub baths for 5 days. 6. No heavy lifting until I see you in the office. 7. Call the office (or go directly to the emergency room after hours) if you notice any of the following: Develop chills (warm to touch), or if you have a thermometer and your temperature is above 101 Difficulty breathing or difficultly swallowing Persistent vomiting Any bleeding ? exceeding one tablespoon 8. Call your physician if the site where your intravenous was started becomes red, swollen, painful, and warm to touch. Activity:: Activity as Tolerated Remove Dressings/Wound Care:: 24 hours Shower/Bathe:: 24 hours Diet:: As Tolerated Discharge Orders Discharge Orders: Discharge Order (Routine); Ordered 09/13/23 Ordered By: Kris Burr DS: Diagnosis Discharge Diagnosis (1) Esophageal cancer: Status: Acute Asessment and Plan: Uncomplicated insertion of right subclavian Bard PowerPort
--- NOTE | 2023-09-13 07:16 | ROE_ITS ---
Date of service: 09/13/23 Time of Service: 12:24 Operative Note Operative Note DATE OF PROCEDURE: 09/13/23 PRE-OP DIAGNOSIS: Esophageal cancer needing Mediport access POST-OP DIAGNOSIS: same PROCEDURE: Ultrasound-guided insertion of right subclavian Bard PowerPort MRI compatible catheter SURGEON: Kris Burr ANESTHESIA TYPE: Local By Surgeon and MAC Refer to Anesthesia Record ESTIMATED BLOOD LOSS: 5 COMPLICATIONS: None Patient was transported to: same day Patient's condition: stable Implants: Bard PowerPort MRI compatible catheter Indications: Joel is a 73-year-old male with esophageal adenocarcinoma who requires chemotherapy and durable intravenous access Procedure Description: After the induction of monitored anesthetic care, I prepped and draped the right chest wall in the usual fashion. Patient was placed in some Trendelenburg positioning. Next, the skin was anesthetized with local anesthetic. Then, with the assistance of real-time ultrasonography, I accessed the left subclavian vein without any difficulty. The needle was left in place, and a guidewire was advanced in the usual fashion. Fluoroscopy was used to confirm appropriate positioning at the atriocaval junction. The catheter was measured to fit, measured approximately 16 cm at the insertion site next, the peel-away introducer catheter was advanced over the guidewire holding everything in place. I then made a small incision on the right chest wall a few centimeters below the access site. Electrocautery was used to ensure hemostasis. Small subcutaneous pocket was developed with a combination of blunt dissection as well as some electrocautery. Next, a catheter was advanced through the subcutaneous tract up to the access site. The catheter was then advanced through the peel- away insertion device into the vein. I then cut the catheter to appropriate length, and the port itself was applied. It was secured in place according to the agriculture consultant's instructions. The port was then accessed, and aspirated. Blood was returned, and the port was then flushed with saline. Finally, the port and catheter were flushed with heparinized solution according to the agriculture consultant's instructions. The port was then affixed in place to the pectoralis fascia, and the skin was closed over it with interrupted Vicryl stitches, and a running subcuticular stitch. Skin glue was used on the incision site, as well as the access site. The patient was then allowed awaken from the anesthetic and transferred to the recovery unit.
[2023-09-13 09:59] VITALS: BP 140/67; PULSE 107; RESP 18; TEMP 36.6; O2SAT 99
--- NOTE | 2023-09-13 10:26 | ANES.PREOP_ITS ---
General Info Date of Service Date Performed: 09/13/23 Height: 5 ft 8 in Weight: 60.7 kg Body Mass Index (BMI): 20.3 Surgical Procedure: Operation Date: 09/13/23 11:10 Proposed Procedure Side Surgeon p Medi-Port Placement Right Kris Burr MD Meds Allergies and Home Medications Allergies Allergy/AdvReac Type Severity Reaction Status Date / Time poison papa extract Allergy Severe Skin Rash Verified 06/20/23 09:40 Home Medication Medication Instructions Recorded clonidine HCl 0.1 mg tablet 0.1 mg PO DAILY PRN 05/04/22 atorvastatin 20 mg tablet 20 mg PO HS 05/19/22 varenicline 0.5 mg (11)-1 mg (42) See Rx Instructions PO PER PKG DIR 06/04/23 tablets in a dose pack docusate sodium 100 mg tablet 100 mg PO DAILY 06/06/23 polyethylene glycol 3350 17 gram 17 g PO DAILY 06/06/23 oral powder packet (Miralax) Current Visit Medications: Current Medications Generic Name Dose Route Start Last Admin Trade Name Diego PRN Reason Stop Dose Admin Ringer's Solution 1,000 mls @ 80 mls/hr 09/13/23 06:00 IV 09/13/23 23:59 INFUSION DARRYL IV Miscellaneous Supplies 1 each 09/13/23 06:00 Iv Access IV 09/13/23 23:59 DIRECTED DARRYL Morphine Sulfate 2 mg 09/13/23 07:17 Morphine 4 Mg/Ml Syr IVP 10/13/23 07:16 Q1H PRN PRN Sodium Chloride 0 ml 09/13/23 06:00 Normal Saline Flush 10 Ml Syr IV 09/13/23 23:59 PRN PRN Sodium Chloride 0 ml 09/13/23 06:00 Normal Saline 10 Ml Vial IJ 09/13/23 23:59 DIRECTED PRN Sterile Water 0 ml 09/13/23 06:00 Water,Injection,Sterile 10 Ml Vial IJ 09/13/23 23:59 DIRECTED PRN Tramadol HCl 50 mg 09/13/23 07:17 Tramadol 50 Mg Tab PO 10/13/23 07:16 Q6H PRN PRN Pain PFSH Active Problems Active Problems: Problem Status Onset Code Esophageal cancer C15.9 Constipation K59.00 Inguinal hernia, right K40.90 Weight loss, abnormal R63.4 Mild acid reflux K21.9 Nuclear sclerotic cataract of right eye H25.11 Posterior subcapsular age-related cataract, right eye H25.041 Nuclear sclerotic cataract of left eye H25.12 Posterior subcapsular age-related cataract of left eye H25.042 Medical History Medical History Tobacco use Irregular cardiac rhythm Dyslipidemia High cholesterol Cataract Elevated BP without diagnosis of hypertension Surgical History Surgical History History of esophagogastroduodenoscopy (~06/20/23) Hx of cataract surgery Tobacco Smoking/Tobacco Use Status: Former Tobacco Use Alcohol Alcohol Intake: never Substance Use Substance use: Never Substance use type: does not use Vital Signs and Lab Results Vital Signs Most Recent Vital Signs in EMR: Most Recent Vital Signs Temp Pulse Resp BP Pulse Ox 36.6 C 107 H 18 140/67 99 09/13/23 09:59 09/13/23 09:59 09/13/23 09:59 09/13/23 09:59 09/13/23 09:59 Lab Results Blood Type / Crossmatch: No Data to Display Complete Blood Count: White Blood Count 5.12 10^3/uL (4.4-10.8) 09/11/23 08:06 Red Blood Count 4.07 10^6/uL (4.36-5.78) L 09/11/23 08:06 Hemoglobin 11.3 g/dL (13.5-17.5) L 09/11/23 08:06 Hematocrit 35.0 % (40.0-50.0) L 09/11/23 08:06 Platelet Count 210 10^3/uL (130-400) 09/11/23 08:06 Complete Metabolic Panel: Sodium 135 mmol/L (136-145) L 09/11/23 08:06 Potassium 4.3 mmol/L (3.5-5.1) 09/11/23 08:06 Chloride 98 mmol/L (98-107) 09/11/23 08:06 Carbon Dioxide 27.3 mmol/L (21.0-32.0) 09/11/23 08:06 BUN 11 mg/dL (7-18) 09/11/23 08:06 Creatinine 0.9 mg/dL (0.70-1.30) 09/11/23 08:06 Est GFR (CKD-EPI 2020) 90.74 (mL/min/1.73m2) 09/11/23 08:06 Magnesium 1.7 mg/dL (1.8-2.4) L 09/11/23 08:06 Calcium 8.9 mg/dL (8.5-10.1) 09/11/23 08:06 Albumin 2.3 g/dL (3.4-5.0) L 09/11/23 08:06 Glucose 138 mg/dL (74-106) H 09/11/23 08:06 Liver Function Panel: Alanine Aminotransferase (ALT/SGPT) 27 U/L (16-63) 09/11/23 08: 06 Aspartate Amino Transf (AST/SGOT) 16 U/L (15-37) 09/11/23 08:06 Coagulation Panel: No Data to Display Cardiac Panel: No Data to Display Arterial Blood Gas: No Data to Display Venous Blood Gas: No Data to Display Pancreas Panel: No Data to Display Thyroid Panel: No Data to Display Infectious Disease: No Data to Display Blood Cultures: No Data to Display Toxicology Panel: No Data to Display Anesthesia Assessment and Plan Anesthesia History Personal History: No History of Anesthesia Complications Family History: No Family History of Anesthesia Complications Exercise Tolerance Exercise Tolerance: Metabolic Equivalents>4 Pertinent Negatives Pertinent Negatives: No Major Cardiovascular Symptoms or Complaints Cardiac & Pulmonary Exam Cardiac Exam: Normal S1/S2 Heart Sounds Pulmonary Exam: Clear Bilateral Breath Sounds (Diminished) Implantable Cardiac Device Does patient have a Pacemaker or an ICD?: No Airway Exam Known Difficult Airway: No Mallampati Class: 1 Mouth Opening: Normal (> 3cm) Thyromental Distance: Greater than 3 cm Neck Range of Motion: Full ROM Neck Circumference: Normal Teeth Condition: Edentulous ASA Classification ASA Score: ASA 3 Emergency Case?: No NPO Status NPO Status: NPO Clears >2 hours, Solids >8 hours Anesthesia Plan Resuscitation Status: Full Code Anesthesia Technique: MAC Anesthesia Airway Planned: Natural Airway Monitors Used: Standard Monitors
[2023-09-13] MEDS: Lactated Ringers 1,000 ML 80 ML IV (10:27)
[2023-09-13 10:28] VITALS: BMI 20.3
--- NOTE | 2023-09-13 11:53 | DI.RAD_ITS ---
Exam(s) XR FLOURO OR C-ARM <1 HR EXAM: XR FLOURO OR C-ARM <1 HR CLINICAL HISTORY: Esophageal cancer/Chemotherapy TECHNIQUE: 2D and realtime digital imaging was performed. CONTRAST MATERIAL: Refer to procedure report. COMPARISON: No exams were available for comparison FINDINGS: Fluoroscopy was provided for Dr. Burr during the performance of a MediPort placement. Please refer to the procedure report for complete details. Ka,r=0.25 mGy IMPRESSION: RADIATION DOSE DELIVERED:
[2023-09-13] MEDS: Normal Saline 50 ML (11:58)
[2023-09-13] MEDS: Heparin 500 UNITS/5 ML SYRINGE (11:59)
[2023-09-13 12:17] VITALS: BP 113/63; PULSE 87; RESP 16; TEMP 36.5; O2SAT 99
--- NOTE | 2023-09-13 12:48 | W.ANESPOSTOP ---
Postoperative Evaluation Date, Time and Location Date Performed: 09/13/23 Time Performed: 12:20 Patient Location: Day [facility] Unit Vital Signs Most Recent Imported Vital Signs: Most Recent Vital Signs Temp Pulse Resp BP Pulse Ox 36.5 C 87 16 113/63 99 09/13/23 12:17 09/13/23 12:17 09/13/23 12:17 09/13/23 12:17 09/13/23 12:17 Pain Score Most Recent Pain Score: Most Recent Pain Score Pain Level 1 09/13/23 12:17 Assessment Mental Status: Awake (Alert & Oriented to Patient Baseline) Airway and Respiratory Function: Patent airway with normal (patient baseline) respiratory exam Cardiovascular Function: Hemodynamically Stable Hydration Status: Adequately Hydrated Nausea & Vomiting: No Nausea or Vomiting Pain: Pt. Denies Any Pain Peripheral Nerve Block: Patient did not receive a nerve block
[2023-09-13 12:55] VITALS: BP 138/59; PULSE 91; RESP 20; TEMP 36.4; O2SAT 99
== END 2023-09-13 13:15 | disposition home or self-care (01) ==
LOC: SUR 09:18
PROVIDERS: PCP Nurse Practitioner Family; Visit Provider Surgery
PROC: (CPT 36561; principal; 2023-09-13 11:00)
DX: C15.9 Malignant neoplasm of esophagus, unspecified (principal); R63.4 Abnormal weight loss; E78.00 Pure hypercholesterolemia, unspecified; F17.210 Nicotine dependence, cigarettes, uncomplicated
CPT/HCPCS: 36561; 76937; 76000; C1788; J1642; J2250; J2371; J3010

== ENCOUNTER 2023-10-01 03:47 | Outpatient (RCR) | payer MEDICARE, SELFPAY ==
[2023-09-17] MEDS: Normal Saline Flush 10 ML SYR IVP (08:32)
[2023-09-17 08:40] LABS: Abs Immature Grans 0.03 10^3/uL (0.0-0.06); Absolute Basophil Count 0.05 10^3/uL (0.0-0.2); Absolute Eosinophil Count 0.01 10^3/uL (0.0-0.7); Absolute Lymphocyte Count 0.48 10^3/uL (1.2-3.4); Absolute Monocyte Count 0.47 10^3/uL (0.1-0.8); Absolute Neutrophil Count 1.83 10^3/uL (1.2-6.7); Basophils % 1.7; Eosinophils % 0.3; HCT 33.3 % (40.0-50.0); HGB 10.9 g/dL (13.5-17.5); Lymphocytes % 16.7; MCH 28.2 pg (27.0-33.0); MCHC 32.7 % (32.0-36.0); MCV 86 fL (80-95); MPV 8.6 fL (8.0-11.0); Monocytes % 16.4; Neutrophils % 63.9; Platelet Count 222 10^3/uL (130-400); RBC 3.87 10^6/uL (4.36-5.78); RDW 15.3 % (11.8-14.1); RDW-SD 46.2 fL; WBC 2.87 10^3/uL (4.4-10.8)
[2023-09-17 09:12] LABS: ALT 21 U/L (16-63); AST 14 U/L (15-37); Albumin 2.3 g/dL (3.4-5.0); Alkaline Phosphatase 63 U/L (46-116); Anion Gap 9.2 mmol/L (3-11); BUN 10 mg/dL (7-18); Bilirubin, Total 0.6 mg/dL (0.2-1.0); CO2 25.8 mmol/L (21.0-32.0); CREATININE 0.8 mg/dL (0.70-1.30); Calcium 8.4 mg/dL (8.5-10.1); Chloride 102 mmol/L (98-107); Estimated GFR 94.03 (mL/min/1.73m2); Glucose 141 mg/dL (74-106); Magnesium 1.7 mg/dL (1.8-2.4); Potassium 3.8 mmol/L (3.5-5.1); Sodium 137 mmol/L (136-145); Total Protein 6.4 g/dL (6.4-8.2)
[2023-09-24 09:00] LABS: HCT 31.9 % (40.0-50.0); HGB 10.6 g/dL (13.5-17.5); MCH 28.5 pg (27.0-33.0); MCHC 33.2 % (32.0-36.0); MCV 86 fL (80-95); MPV 9.1 fL (8.0-11.0); Platelet Count 223 10^3/uL (130-400); RBC 3.72 10^6/uL (4.36-5.78); RDW 15.8 % (11.8-14.1); RDW-SD 46.3 fL; WBC 2.93 10^3/uL (4.4-10.8)
[2023-09-24 09:12] LABS: ALT 19 U/L (16-63); AST 17 U/L (15-37); Albumin 2.5 g/dL (3.4-5.0); Alkaline Phosphatase 54 U/L (46-116); Anion Gap 7.7 mmol/L (3-11); BUN 13 mg/dL (7-18); Bilirubin, Total 0.6 mg/dL (0.2-1.0); CO2 28.3 mmol/L (21.0-32.0); CREATININE 0.9 mg/dL (0.70-1.30); Calcium 9.1 mg/dL (8.5-10.1); Chloride 103 mmol/L (98-107); Estimated GFR 90.74 (mL/min/1.73m2); Glucose 142 mg/dL (74-106); Magnesium 1.8 mg/dL (1.8-2.4); Potassium 3.5 mmol/L (3.5-5.1); Sodium 139 mmol/L (136-145); Total Protein 6.5 g/dL (6.4-8.2)
[2023-09-24] MEDS: Normal Saline Flush 10 ML SYR IVP (09:17)
[2023-09-24 09:25] LABS: Absolute Basophil Count 0.03 10^3/uL (0.0-0.2); Absolute Eosinophil Count 0.06 10^3/uL (0.0-0.7); Absolute Lymphocyte Count 0.53 10^3/uL (1.2-3.4); Absolute Monocyte Count 0.38 10^3/uL (0.1-0.8); Bands % 17; Diff Comment Manual Differential; Myelocytes % 1; RBC Morphology Normal
[2023-10-01] MEDS: Normal Saline Flush 10 ML SYR IVP (11:17)
[2023-10-01 11:31] LABS: Absolute Basophil Count 0.03 10^3/uL (0.0-0.2); Absolute Eosinophil Count 0.01 10^3/uL (0.0-0.7); Absolute Monocyte Count 0.83 10^3/uL (0.1-0.8); Absolute Neutrophil Count 5.67 10^3/uL (1.2-6.7); Basophils % 0.4; Eosinophils % 0.1; HCT 35.2 % (40.0-50.0); HGB 11.6 g/dL (13.5-17.5); Immature Grans % 2.8; Lymphocytes % 5.6; MCH 28.5 pg (27.0-33.0); MCV 87 fL (80-95); MPV 8.6 fL (8.0-11.0); Monocytes % 11.6; Neutrophils % 79.5; Platelet Count 226 10^3/uL (130-400); RBC 4.07 10^6/uL (4.36-5.78); RDW 17.7 % (11.8-14.1); RDW-SD 51.5 fL; WBC 7.14 10^3/uL (4.4-10.8)
[2023-10-01 11:58] LABS: ALT 33 U/L (16-63); AST 21 U/L (15-37); Albumin 2.7 g/dL (3.4-5.0); Alkaline Phosphatase 70 U/L (46-116); Anion Gap 12.3 mmol/L (3-11); BUN 13 mg/dL (7-18); Bilirubin, Total 0.4 mg/dL (0.2-1.0); CO2 25.7 mmol/L (21.0-32.0); Calcium 8.9 mg/dL (8.5-10.1); Chloride 103 mmol/L (98-107); Estimated GFR 79.97 (mL/min/1.73m2); Glucose 151 mg/dL (74-106); Magnesium 1.8 mg/dL (1.8-2.4); Potassium 3.4 mmol/L (3.5-5.1); Sodium 141 mmol/L (136-145); Total Protein 6.4 g/dL (6.4-8.2)
== END 2023-10-10 23:59 | disposition home or self-care (01) ==
LOC: INF 03:47
PROVIDERS: PCP Nurse Practitioner Family; Visit Provider Internal Medicine Medical Oncology
DX: C15.5 Malignant neoplasm of lower third of esophagus (principal); Z45.2 Encounter for adjustment and management of vascular access device
CPT/HCPCS: 36591; 80053; 83735; 85025

== ENCOUNTER 2023-11-07 02:40 | Outpatient (RCR) | payer MEDICARE, SELFPAY ==
[2023-10-15 10:26] LABS: Absolute Basophil Count 0.03 10^3/uL (0.0-0.2); Absolute Eosinophil Count 0.05 10^3/uL (0.0-0.7); Absolute Lymphocyte Count 0.29 10^3/uL (1.2-3.4); Absolute Monocyte Count 0.65 10^3/uL (0.1-0.8); Absolute Neutrophil Count 2.51 10^3/uL (1.2-6.7); Basophils % 0.8; Eosinophils % 1.4; HCT 26.8 % (40.0-50.0); HGB 8.8 g/dL (13.5-17.5); Immature Grans % 2.8; MCH 29.3 pg (27.0-33.0); MCHC 32.8 % (32.0-36.0); MCV 89 fL (80-95); MPV 8.9 fL (8.0-11.0); Monocytes % 17.9; Neutrophils % 69.1; Platelet Count 140 10^3/uL (130-400); RDW 21.2 % (11.8-14.1); RDW-SD 63.8 fL; WBC 3.63 10^3/uL (4.4-10.8)
[2023-10-15] MEDS: Normal Saline Flush 10 ML SYR IVP (10:37)
[2023-10-15 10:49] LABS: Anisocytosis 2+; Diff Comment RBC Morph Reviewed
[2023-10-15 10:53] LABS: ALT 29 U/L (16-63); AST 28 U/L (15-37); Albumin 2.4 g/dL (3.4-5.0); Alkaline Phosphatase 108 U/L (46-116); Anion Gap 6.7 mmol/L (3-11); BUN 20 mg/dL (7-18); Bilirubin, Total 0.4 mg/dL (0.2-1.0); CO2 28.3 mmol/L (21.0-32.0); CREATININE 0.6 mg/dL (0.70-1.30); Calcium 8.7 mg/dL (8.5-10.1); Chloride 102 mmol/L (98-107); Estimated GFR 102.56 (mL/min/1.73m2); Glucose 125 mg/dL (74-106); Magnesium 1.8 mg/dL (1.8-2.4); Potassium 4.1 mmol/L (3.5-5.1); Sodium 137 mmol/L (136-145); Total Protein 6.2 g/dL (6.4-8.2)
[2023-10-24] MEDS: Normal Saline Flush 10 ML SYR IVP (09:30)
[2023-10-24 10:10] LABS: Abs Immature Grans 0.04 10^3/uL (0.0-0.06); Absolute Basophil Count 0.02 10^3/uL (0.0-0.2); Absolute Eosinophil Count 0.08 10^3/uL (0.0-0.7); Absolute Lymphocyte Count 0.78 10^3/uL (1.2-3.4); Absolute Monocyte Count 0.68 10^3/uL (0.1-0.8); Absolute Neutrophil Count 2.38 10^3/uL (1.2-6.7); Basophils % 0.5; HCT 28.6 % (40.0-50.0); HGB 9.3 g/dL (13.5-17.5); Lymphocytes % 19.6; MCH 30.7 pg (27.0-33.0); MCHC 32.5 % (32.0-36.0); MCV 94 fL (80-95); Monocytes % 17.1; Neutrophils % 59.8; Platelet Count 188 10^3/uL (130-400); RBC 3.03 10^6/uL (4.36-5.78); RDW 23.6 % (11.8-14.1); RDW-SD 77.6 fL; WBC 3.98 10^3/uL (4.4-10.8)
[2023-10-24 10:31] LABS: ALT 30 U/L (16-63); AST 28 U/L (15-37); Albumin 2.4 g/dL (3.4-5.0); Alkaline Phosphatase 117 U/L (46-116); Anion Gap 9.1 mmol/L (3-11); BUN 20 mg/dL (7-18); Bilirubin, Total 0.5 mg/dL (0.2-1.0); CO2 27.9 mmol/L (21.0-32.0); CREATININE 0.6 mg/dL (0.70-1.30); Calcium 8.8 mg/dL (8.5-10.1); Chloride 101 mmol/L (98-107); Estimated GFR 102.56 (mL/min/1.73m2); Glucose 145 mg/dL (74-106); Magnesium 1.9 mg/dL (1.8-2.4); Potassium 4.1 mmol/L (3.5-5.1); Sodium 138 mmol/L (136-145); Total Protein 6.4 g/dL (6.4-8.2)
[2023-10-24 10:34] LABS: Anisocytosis 1+; Diff Comment Diff Reviewed; Macrocytosis 1+
[2023-10-24 10:35] LABS: Polychromasia Present
[2023-11-07] MEDS: Normal Saline Flush 10 ML SYR IVP (10:01)
[2023-11-07 10:15] LABS: Abs Immature Grans 0.07 10^3/uL (0.0-0.06); Absolute Basophil Count 0.03 10^3/uL (0.0-0.2); Absolute Eosinophil Count 0.07 10^3/uL (0.0-0.7); Absolute Lymphocyte Count 0.93 10^3/uL (1.2-3.4); Absolute Monocyte Count 1.01 10^3/uL (0.1-0.8); Absolute Neutrophil Count 2.71 10^3/uL (1.2-6.7); Basophils % 0.6; Eosinophils % 1.5; HCT 33.8 % (40.0-50.0); HGB 10.8 g/dL (13.5-17.5); Immature Grans % 1.5; Lymphocytes % 19.3; MCH 31.7 pg (27.0-33.0); MCV 99 fL (80-95); MPV 8.9 fL (8.0-11.0); Neutrophils % 56.1; Platelet Count 211 10^3/uL (130-400); RBC 3.41 10^6/uL (4.36-5.78); RDW 20.8 % (11.8-14.1); RDW-SD 74.7 fL; WBC 4.82 10^3/uL (4.4-10.8)
[2023-11-07 10:29] LABS: ALT 32 U/L (16-63); AST 29 U/L (15-37); Albumin 2.8 g/dL (3.4-5.0); Alkaline Phosphatase 129 U/L (46-116); Anion Gap 8.6 mmol/L (3-11); BUN 19 mg/dL (7-18); Bilirubin, Total 0.4 mg/dL (0.2-1.0); CO2 29.4 mmol/L (21.0-32.0); CREATININE 0.6 mg/dL (0.70-1.30); Calcium 9.1 mg/dL (8.5-10.1); Chloride 100 mmol/L (98-107); Estimated GFR 102.56 (mL/min/1.73m2); Glucose 133 mg/dL (74-106); Magnesium 2.1 mg/dL (1.8-2.4); Potassium 4.2 mmol/L (3.5-5.1); Sodium 138 mmol/L (136-145); Total Protein 6.8 g/dL (6.4-8.2)
[2023-11-07 10:38] LABS: Anisocytosis 1+; Diff Comment Diff Reviewed
== END 2023-11-08 23:59 | disposition home or self-care (01) ==
LOC: INF 02:40
PROVIDERS: PCP Nurse Practitioner Family; Visit Provider Internal Medicine Medical Oncology
DX: C15.5 Malignant neoplasm of lower third of esophagus (principal); Z45.2 Encounter for adjustment and management of vascular access device
CPT/HCPCS: 36591; 80053; 83735; 85025

== ENCOUNTER → 2023-12-04 01:12 | Outpatient (CLI) | payer MEDICARE, SELFPAY ==
[2023-12-04] MEDS: Barium Sulfate 2% W/V-Creamy Vanilla Smoothie 450 ML BTL PO (08:14)
[2023-12-04] MEDS: Barium Sulfate 2% W/V-Berry Smoothie 450 ML BTL PO (08:16)
[2023-12-04] MEDS: Normal Saline - Diluent 50 ML VIAL IJ (10:19)
[2023-12-04] MEDS: Omnipaque 350 MG/ML 500 ML BTL-Imaging package IJ (10:21)
--- NOTE | 2023-12-04 10:36 | DI.CT_ITS ---
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 Pulmonary parenchyma: Moderate centrilobular emphysema is present. There is a calcified granuloma in the right middle lobe. No noncalcified pulmonary nodules. No focal consolidating infiltrates. No architectural distortion. Visualized thyroid gland: There is a 5 mm hypodense nodule in the posterior aspect of the left lobe. No follow-up is recommended. Mediastinum and Julisa: No dominant adenopathy or fluid collection. There is marked decrease in the wal l thickening of the distal esophagus compared to the prior examination. Maximal thickness is now 7 m m. Pleura: No effusion or pneumothorax. Heart: The heart is not dilated. Moderate coronary artery calcification is present. There is a small pericardial effusion. Pulmonary arteries: No pulmonary emboli are identified. Aorta: Thoracic aorta non-dilated. There is no evidence of dissection. Atherosclerotic calcification is present. Lymph nodes: Within normal limits. Tubes, Catheters, and Lines: There is a right-sided Bxcdns-T-Xips catheter in place. Soft tissues: Unremarkable. Bones:Within normal limits for the patient's age. No aggressive osseous lesions are present. ABDOMEN: Liver: Normal density. No measurable mass. Portal, Superior Mesenteric, and Splenic Veins: Unremarkable. Gallbladder and Biliary Tract: No radiodense calculus or dilation. Pancreas: Normal density, no abnormal calcifications or inflammatory process. Spleen: Normal. Adrenals: There is stable nodularity of the left adrenal gland measuring 1.4 x 2 cm. The right adren al gland is unremarkable. Kidneys: Normal size, contour and axis. No radiodense stones or obstructive uropathy. Stable bilatera l renal cysts. No follow-up is recommended. Abdominal Aorta: Abdominal portion non-dilated. Atherosclerotic calcification is present. Bowel: No obstruction or bowel wall thickening. Appendix is unremarkable. There is a percutaneous gas trostomy tube in place. Peritoneal Cavity: No ascites, collection or mesenteric inflammatory response. No free air. Lymph Nodes: Within normal limits. Bones: Within normal limits for the patient's age. No aggressive osseous lesions. Soft Tissues: Unremarkable. PELVIS: Bladder: Symmetric distention, no gross wall thickening. Reproductive Organs: Unremarkable as visualized. Lymph Nodes: Within normal limits. Bones: Within normal limits. IMPRESSION: 1. There has been marked decrease in size of the wall thickness of the distal esophageal carcinoma. Currently measures 7 mm in thickness. This compares to over 1.3 cm on the prior examination. 2. No evidence of metastatic disease in the chest or abdomen. 3. Stable left adrenal nodule. This is indeterminate. 4. Small pericardial effusion. 5. Interval placement of a percutaneous gastrostomy tube. RADIATION DOSE DELIVERED: Total DLP DATA REPOSITORY: All CT scans at this facility are submitted to the National Radiology Data Registry (NRDR) Dose Index Registry (DIR) with the [employer] (ACR). RADIATION OPTIMIZATION: All CT scans at this facility use at least one of these dose optimization te chniques: automated exposure control; mA and/or kV adjustment per patient size (includes targeted exa ms where dose is matched to clinical indication); or iterative reconstruction.
== END ==
PROVIDERS: PCP Nurse Practitioner Family; Visit Provider Nurse Practitioner Family
DX: C15.5 Malignant neoplasm of lower third of esophagus (principal)
CPT/HCPCS: 36591; 80053; 71260; 74160; 83735; 85025

== ENCOUNTER 2023-12-04 04:29 | Outpatient (RCR) | payer MEDICARE, SELFPAY ==
[2023-12-04] MEDS: Normal Saline Flush 10 ML SYR IVP (07:35)
[2023-12-04 07:52] LABS: Abs Immature Grans 0.03 10^3/uL (0.0-0.06); Absolute Basophil Count 0.04 10^3/uL (0.0-0.2); Absolute Eosinophil Count 0.22 10^3/uL (0.0-0.7); Absolute Lymphocyte Count 0.92 10^3/uL (1.2-3.4); Absolute Monocyte Count 0.93 10^3/uL (0.1-0.8); Absolute Neutrophil Count 3.72 10^3/uL (1.2-6.7); Basophils % 0.7; Eosinophils % 3.8; HCT 37.4 % (40.0-50.0); HGB 12.4 g/dL (13.5-17.5); Immature Grans % 0.5; Lymphocytes % 15.7; MCH 32.8 pg (27.0-33.0); MCHC 33.2 % (32.0-36.0); MCV 99 fL (80-95); MPV 9.3 fL (8.0-11.0); Monocytes % 15.9; Neutrophils % 63.4; Platelet Count 181 10^3/uL (130-400); RBC 3.78 10^6/uL (4.36-5.78); RDW 14.5 % (11.8-14.1); RDW-SD 53.3 fL; WBC 5.86 10^3/uL (4.4-10.8)
[2023-12-04 08:17] LABS: ALT 30 U/L (16-63); AST 27 U/L (15-37); Alkaline Phosphatase 145 U/L (46-116); Anion Gap 6.6 mmol/L (3-11); BUN 20 mg/dL (7-18); Bilirubin, Total 0.4 mg/dL (0.2-1.0); CO2 30.4 mmol/L (21.0-32.0); CREATININE 0.6 mg/dL (0.70-1.30); Chloride 102 mmol/L (98-107); Estimated GFR 102.56 (mL/min/1.73m2); Glucose 106 mg/dL (74-106); Sodium 139 mmol/L (136-145); Total Protein 6.7 g/dL (6.4-8.2)
== END 2023-12-09 23:59 | disposition home or self-care (01) ==
LOC: INF 04:29
PROVIDERS: Nurse Practitioner Family; PCP Nurse Practitioner Family; Visit Provider Internal Medicine Medical Oncology
DX: C15.5 Malignant neoplasm of lower third of esophagus (principal); Z45.2 Encounter for adjustment and management of vascular access device
CPT/HCPCS: 36591; 80053; 83735; 85025

== ENCOUNTER 2024-02-05 12:42 | Outpatient (RCR) | payer MEDICARE, SELFPAY ==
[2024-02-05] MEDS: Normal Saline Flush 10 ML SYR IVP (13:19)
== END 2024-02-08 23:59 | disposition home or self-care (01) ==
LOC: INF 12:42
PROVIDERS: PCP Nurse Practitioner Family; Visit Provider Nurse Practitioner Family
DX: Z45.2 Encounter for adjustment and management of vascular access device (principal)
CPT/HCPCS: 96523

== ENCOUNTER → 2024-02-15 01:55 | Outpatient (CLI) | payer MEDICARE, SELFPAY ==
[2024-02-15] MEDS: Barium Sulfate 2% W/V-Creamy Vanilla Smoothie 450 ML BTL PO (07:20)
[2024-02-15] MEDS: Omnipaque 350 MG/ML 100 ML BTL IJ (08:45)
[2024-02-15] MEDS: Normal Saline - Diluent 50 ML VIAL IJ (08:48)
--- NOTE | 2024-02-15 08:49 | DI.CT_ITS ---
Exam(s) CT CHEST/ABD W EXAM: CT CHEST/ABD W CLINICAL HISTORY: C15.5 CA of distal third of esophagus,S/P chemo/RT ending 08/2023, TECHNIQUE: Imaging Protocol: Axial computed tomography images with coronal and sagittal reformatted images were created and reviewed CONTRAST MATERIAL: Intravenous: Omnipaque 350 contrast volume:100 mL Oral: Yes COMPARISON: CT CT CHEST/ABD/PEL W from 05/30/[address] CHEST/ABD W from 12/04/2023 FINDINGS: CHEST: Tracheobronchial tree: Patent where visualized. No evidence of bronchiectasis. Pulmonary parenchyma: Moderate centrilobular emphysematous changes are present. There is a calcified granuloma in the right middle lobe. No noncalcified pulmonary nodules. No focal consolidating infi ltrates are seen. There are small bilateral pleural effusions and subjacent atelectasis. Visualized thyroid gland: Unremarkable. Mediastinum and Julisa: No dominant adenopathy or fluid collection. There is persistent wall thickening seen in the distal esophagus measuring up to 7-8 mm. There is a small hiatal hernia. Pleura: There are small bilateral pleural effusions. No pneumothorax. Heart: The heart is not dilated. Coronary artery calcification and/or stents are present. There is a small pericardial effusion. It shows slight increase in size compared to the prior examination. Pulmonary arteries: No pulmonary emboli are identified. Aorta: Thoracic aorta non-dilated. There is no evidence of dissection. Atherosclerotic calcification is present. Lymph nodes: Within normal limits. Tubes, Catheters, and Lines: There is a right-sided Wqpfys-L-Vivr catheter. Soft tissues: Unremarkable. Bones:Within normal limits for the patient's age. No aggressive osseous lesions are present. ABDOMEN: Liver: Normal density. No measurable mass. Portal, Superior Mesenteric, and Splenic Veins: Unremarkable. Gallbladder and Biliary Tract: No radiodense calculus or dilation. Pancreas: Normal density, no abnormal calcifications or inflammatory process. Spleen: Normal. Adrenals: Stable nodularity of the left adrenal gland. The right adrenal gland is unremarkable. Kidneys: Normal size, contour and axis. Nonobstructing stone in the superior pole of the right kidney . Tiny hypodensities are seen in both kidneys. They are too small for further characterization the appears stable. The likely reflect small cysts. No follow-up is recommended. No masses seen. Abdominal Aorta: Abdominal portion non-dilated. Atherosclerotic calcification is present. Bowel: There is a moderate amount of stool in the colon which may reflect constipation. No small or large bowel wall thickening or obstruction is seen. The patient has a percutaneous gastrostomy tube. Appendix is unremarkable. Peritoneal Cavity: No ascites, collection or mesenteric inflammatory response. No free air. Lymph Nodes: Within normal limits. Bones: Within normal limits for the patient's age. Soft Tissues: Unremarkable. IMPRESSION: 1. Stable thickening of the wall of the distal esophagus. 2. No evidence of pulmonary metastatic disease. 3. Persistent small pleural effusion and subjacent atelectasis. Slight increase in size of the peric ardial effusion. 4. Stable nodularity of the left adrenal gland. 5. No definite evidence of abdominal metastatic disease. RADIATION DOSE DELIVERED: 963.68mGy.cm Total DLP DATA REPOSITORY: All CT scans at this facility are submitted to the National Radiology Data Registry (NRDR) Dose Index Registry (DIR) with the [employer] (ACR). RADIATION OPTIMIZATION: All CT scans at this facility use at least one of these dose optimization te chniques: automated exposure control; mA and/or kV adjustment per patient size (includes targeted exa ms where dose is matched to clinical indication); or iterative reconstruction.
== END ==
PROVIDERS: PCP Nurse Practitioner Family; Visit Provider Internal Medicine Medical Oncology
DX: C15.5 Malignant neoplasm of lower third of esophagus (principal)
CPT/HCPCS: 36591; 80053; 71260; 74160; 83735; 85025; J3490

== ENCOUNTER 2024-02-15 04:48 | Outpatient (RCR) | payer MEDICARE, SELFPAY ==
[2024-02-15] MEDS: Normal Saline Flush 10 ML SYR IVP (07:07)
[2024-02-15 07:45] LABS: Abs Immature Grans 0.05 10^3/uL (0.0-0.06); Absolute Basophil Count 0.05 10^3/uL (0.0-0.2); Absolute Eosinophil Count 0.16 10^3/uL (0.0-0.7); Absolute Lymphocyte Count 1.31 10^3/uL (1.2-3.4); Absolute Monocyte Count 0.98 10^3/uL (0.1-0.8); Absolute Neutrophil Count 3.52 10^3/uL (1.2-6.7); Basophils % 0.8 %; Eosinophils % 2.6 %; HGB 12.4 g/dL (13.5-17.5); Immature Grans % 0.8 %; Lymphocytes % 21.6 %; MCH 31.6 pg (27.0-33.0); MCHC 32.6 % (32.0-36.0); MCV 97 fL (80-95); MPV 8.2 fL (8.0-11.0); Monocytes % 16.1 %; Neutrophils % 58.1 %; Platelet Count 198 10^3/uL (130-400); RBC 3.93 10^6/uL (4.36-5.78); RDW 14.8 % (11.8-14.1); WBC 6.07 10^3/uL (4.4-10.8)
[2024-02-15 08:01] LABS: ALT 31 U/L (16-63); AST 26 U/L (15-37); Albumin 3.3 g/dL (3.4-5.0); Alkaline Phosphatase 149 U/L (46-116); Anion Gap 9.4 mmol/L (3-11); BUN 14 mg/dL (7-18); Bilirubin, Total 0.7 mg/dL (0.2-1.0); CO2 27.6 mmol/L (21.0-32.0); CREATININE 0.8 mg/dL (0.70-1.30); Calcium 8.8 mg/dL (8.5-10.1); Chloride 104 mmol/L (98-107); Estimated GFR 94.03 (mL/min/1.73m2); Glucose 108 mg/dL (74-106); Potassium 3.9 mmol/L (3.5-5.1); Sodium 141 mmol/L (136-145); Total Protein 6.7 g/dL (6.4-8.2)
== END 2024-03-09 23:59 | disposition home or self-care (01) ==
LOC: INF 04:48
PROVIDERS: PCP Nurse Practitioner Family; Visit Provider Internal Medicine Medical Oncology
DX: C15.5 Malignant neoplasm of lower third of esophagus (principal)
CPT/HCPCS: 36591; 80053; 83735; 85025

== ENCOUNTER → 2024-03-31 00:36 | Outpatient (CLI) | payer MEDICARE, SELFPAY ==
--- NOTE | 2024-03-31 09:30 | DI.US_ITS ---
APPROVED REPORT EXAM: Comprehensive 2D, Doppler, and color-flow Echocardiogram Patient Location: [facility] Specialist: Schuyler Young RDCS (AE) Conclusion Normal left ventricular wall thickness and chamber size. Ejection fraction is 40%. There is global hypokinesis Normal right ventricular size and function Both atria are normal in size Aortic valve is sclerotic. There is mild aortic stenosis and regurgitation. Mean valve gradient is 10 mmHg Mildly thickened mitral leaflets with moderate regurgitation Small circumferential pericardial effusion, no findings to suggest tamponade Wall motion Left Ventricle The left ventricle is normal size. Left ventricular systolic function is moderately decreased. There is normal left ventricular wall thickness. There is global hypokinesis of the left ventricle. There i s no ventricular septal defect visualized. LVEF is 40%. Right Ventricle The right ventricle is normal size. The right ventricular systolic function is normal. Atria The left atrium size is normal. Right atrium is mildly dilated. The interatrial septum is intact with no evidence for an atrial septal defect. Aortic Valve The Aortic valve is sclerotic. Mild aortic stenosis. Mean gradient is 10 mmHg Mild aortic regurgitati on. Mitral Valve Mildly thickened leaflets No evidence of mitral valve stenosis. Moderate mitral regurgitation. Tricuspid Valve The tricuspid valve is normal in structure. There is no tricuspid valve stenosis. Trace tricuspid reg urgitation. Unable to assess PA pressure. Pulmonic Valve The pulmonary valve is normal in structure. There is no pulmonic valvular stenosis. Trace pulmonic re gurgitation. Great Vessels The aortic root is normal in size. The ascending aorta is normal in size. Aortic arch is not well vis ualized. The IVC collapses <50% with inspiration. Pericardium Small circumferential pericardial effusion. No echo indications of pericardial tamponade. 2D Dimensions IVSD d PLAX 0.71 cm M: 0.6-1.2 Ao Root d 2.75 cm M: 3.1 - 3.7 LVPW d PLAX 0.73 cm M: 0.6 - 1.2 Ao Asc Diam d 2.51 cm M: 2.6 - 3.4 LVID d PLAX 5.45 cm M: 4.2 - 5.8 LVDs 4.40 cm M: 2.5 - 4.0 LV EF Teichholz 39.3 % FS 19.31 % LV EDV (Teich) 144.6 mL LV ESV (Teich) 87.7 mL Stroke Vol Index (Teich) 32.68 M-Mode TAPSE 2.40 cm (M/F) >1.7 Auto EF LV EDV A4C 121.7 mL LV EDV A2C 117.8 mL LV EDV BP 118.4 mL LV ESV A4C 72.9 mL LV ESV A2C 70.7 mL LV ESV BP 69.9 mL LVEF(%) A4C 40.1 % LVEF(%) A2C 40.0 % LVEF(%) BP 41.0 % LV SV A4C 48.9 ml LV SV A2C 47.1 ml LV SV BP 48.5 ml LV CO A4C 3.3 L/min LV CO A2C 3.2 L/min LV CO BP 3.3 L/min HR A4C 68.42 BPM HR A2C 68.71 BPM LV EDV Index (BP) LA Volume LA Length A4C 5.1 cm LA Length A2C 3.7 cm LA Area A4C s 11.03 cm2 LA Area A2C s 12.45 cm2 LA Vol A4C A-L 20.41 mL LA Vol A2C A-L 35.80 mL LA Vol Biplane A-L 31.7 mL LA Vol/BSA A4C A-L LA Vol/BSA A2C A-L LA Vol/BSA BP A-L 18.2 mL/m2 LA Vol A4C MOD 20.9 mL LA Vol A2C MOD 34.8 mL LA Vol BP MOD 30.8 mL RA Volume RA Area A4C 11.9 cm2 RA ESV A4C (A-L) 28.3mL RA Vol/BSA A4C A-L RA Length A4C 4.2 cm RA ESV A4C (MOD) 27.3mL LV Diastology MV E' medial 0.036 (>0.07 m/s) MV E Vmax 0.60 (0.4-1.3 m/s) MV E/E' MED 16.91 (<14) MV A Vmax 0.90 (0.4-1.3 m/s) MV E' lateral 0.065 (>0.1 m/s) E/A Ratio 0.7 MV E/E' LAT 9.30 (<14) MV E' Average 0.050 m/s MV E/E'(average) 12.00 Aortic Valve AoV Vmax 2.13 m/s LVOT Vmax 0.60 m/s AoV Peak Grad 61.5 mmHg LVOT Peak Grad 1.5 mmHg AoV Area (Vmax) 0.76 cm2 LVOT VTI 0.153 m AoV VTI 0.494 m LVOT Mean Grad 1.0 mmHg AoV Mean Sudheer. 1.52 m/s LVOT SV 41.26 mL AoV Mean Grad 10.2 mmHg LVOT Diam s 1.85 cm AoV Area (VTI) 0.83 cm2 AV Regurg Peak Gr. 104.85 mmHg Velocity Ratio 0.28 AR Decel [place] 4.3m/sec2 AR DT 1188 msec AR PHT 344 msec AR Vmax 5.12 m/s Mitral Valve MV DT 237 (160-240 msec) MR Vmax 6.33 m/s MV Vmax TIPS 0.86 m/s MR VTI 2.333 m MV Mean Grad 1.5 (<2mmHg) MR Peak Grad 160.4 mmHg MV VTI 0.314 m MR Mean Grad 92.8 mmHg MR PISA Radius 0.42 cm MR Aliasing Velocity 0.36 m/s Pulmonary Valve PV Vmax 0.65 (0.5-1.5 m/s) RVOT Vmax 0.58 m/s PV Peak Grad 1.7 mmHg RVOT Peak Gr. 1.3 mmHg PV Mean Sudheer 0.50 m/s RVOT VTI 0.132 m PV Mean Grad 1.1 mmHg RVOT Mean Gr. 0.9 mmHg
== END ==
PROVIDERS: PCP Nurse Practitioner Family; Visit Provider Internal Medicine Cardiovascular Disease
DX: I50.32 Chronic diastolic (congestive) heart failure (principal)
CPT/HCPCS: 93306

== ENCOUNTER 2024-06-19 01:04 | Outpatient (CLI) | payer MEDICARE, SELFPAY ==
[2024-06-19] MEDS: Barium Sulfate 2% W/V-Berry Smoothie 450 ML BTL PO (08:58)
[2024-06-19] MEDS: Normal Saline - Diluent 50 ML VIAL IJ (09:51)
[2024-06-19] MEDS: Omnipaque 350 MG/ML 500 ML BTL-Imaging package IJ (09:51)
--- NOTE | 2024-06-19 09:57 | DI.CT_ITS ---
Exam(s) CT CHEST/ABD W EXAM: CT CHEST/ABD W CLINICAL HISTORY: CANCER ESOPHAGUS C15.5 S/P CHEMO /RT ENDING 10/03, RESTAGING. TECHNIQUE: Imaging Protocol: Axial computed tomography images with coronal and sagittal reformatted images were created and reviewed CONTRAST MATERIAL: Intravenous: Omnipaque 350 Contrast volume:85 mL Oral: Yes. Oral contrast also administered bowel opacification. COMPARISON: CT CT CHEST/ABD W from 12/04/[address] CHEST/ABD W from 02/15/2024 FINDINGS: CHEST: LUNGS: Again noted is an unchanged benign calcified granuloma in the right middle lobe. Small subple ural scarring in the posterior aspect of the right upper lobe is unchanged. Tiny left pleural effusi on is unchanged. MEDIASTINUM: There is no hilar nor mediastinal adenopathy. Visualized thyroid unremarkable.Esophagus wall is again noted be thickened and the esophagus is moderately dilated. GE junction again appears prominent. There is no new para esophageal adenopathy evident. CARDIAC: Heart size normal. Small pericardial effusion appears unchanged.Caliber of the thoracic aor ta is within normal limits. No dissection. OSSEOUS: No fractures. Benign intraosseous hemangioma is again noted in the T9 vertebral body, uncha nged.. ABDOMEN: There is no ascites. Percutaneous gastrostomy remains in good position in the stomach. LIVER: There are no focal hepatic lesions nor dilatation of intrahepatic ducts. GALLBLADDER/BILIARY: No obvious gallbladder pathology. CBD is not dilated. PANCREAS: No evidence of pancreatic mass nor dilatation of the pancreatic duct. SPLEEN: Spleen is not enlarged. There are no intrasplenic lesions. Splenic and portal veins are tobin nt. ADRENALS: Left adrenal thickening again noted. KIDNEYS: Small left kidney cyst again noted. Smaller right kidney cysts again noted. No solid renal masses nor calculi nor hydronephrosis.. ABDOMINAL AORTA: Abdominal aorta is atherosclerotic but not enlarged. Visualized common iliac arteri es are not enlarged. LYMPH NODES: No increase [id number] adenopathy. No new mesenteric masses. ABDOMINAL WALL: Percutaneous gastrostomy again noted. No evidence of infection at this level. GI: There is no evidence of bowel obstruction. IMPRESSION: 1. Persistent thickening of the esophageal wall, similar to previous. No increasing periesophageal a denopathy. No evidence of increasing abdominal metastatic disease. No new lesions in the liver nor increasing lymphadenopathy nor new mesenteric masses. 2. No evidence of metastatic lung disease. Persistent small left pleural effusion 3. No significant osseous lesions. 4. RADIATION DOSE DELIVERED: 185.4mGy.cm Total DLP DATA REPOSITORY: All CT scans at this facility are submitted to the National Radiology Data Registry (NRDR) Dose Index Registry (DIR) with the [employer] (ACR). RADIATION OPTIMIZATION: All CT scans at this facility use at least one of these dose optimization te chniques: automated exposure control; mA and/or kV adjustment per patient size (includes targeted exa ms where dose is matched to clinical indication); or iterative reconstruction.
== END 2024-06-19 01:24 ==
LOC: DI 01:04
PROVIDERS: PCP Nurse Practitioner Family; Visit Provider Internal Medicine Medical Oncology
DX: C15.5 Malignant neoplasm of lower third of esophagus (principal)
CPT/HCPCS: 36591; 80053; 71260; 74160; 83735; 85025

== ENCOUNTER 2024-06-19 01:56 | Outpatient (RCR) | payer MEDICARE, SELFPAY ==
[2024-06-19] MEDS: Normal Saline Flush 10 ML SYR IVP (09:16)
[2024-06-19 13:27] LABS: Abs Immature Grans 0.03 10^3/uL (0.0-0.06); Absolute Basophil Count 0.03 10^3/uL (0.0-0.2); Absolute Eosinophil Count 0.11 10^3/uL (0.0-0.7); Absolute Lymphocyte Count 1.59 10^3/uL (1.2-3.4); Absolute Monocyte Count 1.02 10^3/uL (0.1-0.8); Absolute Neutrophil Count 3.66 10^3/uL (1.2-6.7); Basophils % 0.5 %; Eosinophils % 1.7 %; HCT 37.1 % (40.0-50.0); HGB 12.2 g/dL (13.5-17.5); Immature Grans % 0.5 %; Lymphocytes % 24.7 %; MCH 31.8 pg (27.0-33.0); MCHC 32.9 % (32.0-36.0); MCV 97 fL (80-95); MPV 8.6 fL (8.0-11.0); Monocytes % 15.8 %; Neutrophils % 56.8 %; Platelet Count 241 10^3/uL (130-400); RBC 3.84 10^6/uL (4.36-5.78); RDW 15.3 % (11.8-14.1); RDW-SD 54.2 fL; WBC 6.44 10^3/uL (4.4-10.8)
[2024-06-19 13:35] LABS: Calcium 8.9 mg/dL (8.5-10.1)
[2024-06-19 13:36] LABS: ALT 19 U/L (16-63); AST 20 U/L (15-37); Alkaline Phosphatase 136 U/L (46-116); Anion Gap 10.3 mmol/L (3-11); BUN 15 mg/dL (7-18); Bilirubin, Total 0.72 mg/dL (0.2-1.0); CO2 26.7 mmol/L (21.0-32.0); CREATININE 0.8 mg/dL (0.70-1.30); Chloride 105 mmol/L (98-107); Estimated GFR 93.45 (mL/min/1.73m2); Glucose 105 mg/dL (74-106); Magnesium 2.1 mg/dL (1.8-2.4); Potassium 4.4 mmol/L (3.5-5.1); Sodium 142 mmol/L (136-145); Total Protein 6.5 g/dL (6.4-8.2)
== END 2024-07-10 23:59 | disposition home or self-care (01) ==
LOC: INF 01:56
PROVIDERS: PCP Nurse Practitioner Family; Visit Provider Internal Medicine Medical Oncology
DX: C15.5 Malignant neoplasm of lower third of esophagus (principal); Z45.2 Encounter for adjustment and management of vascular access device
CPT/HCPCS: 36591; 80053; 96523; 83735; 85025

== ENCOUNTER → 2024-08-26 10:06 | Outpatient (BNVA) | payer MEDICARE, SELFPAY | PROVIDERS: PCP Nurse Practitioner Family; Referring Provider Nurse Practitioner Family; Visit Provider Podiatrist | DX: R26.89 Other abnormalities of gait and mobility (principal); R29.6 Repeated falls; B35.1 Tinea unguium; L60.3 Nail dystrophy | CPT/HCPCS: 99213 ==

== ENCOUNTER 2024-09-22 02:43 | Outpatient (RCR) | payer MEDICARE, SELFPAY ==
[2024-09-22] MEDS: Normal Saline Flush 10 ML SYR IVP (09:14)
[2024-09-22 09:24] LABS: Abs Immature Grans 0.12 10^3/uL (0.0-0.06); Absolute Basophil Count 0.06 10^3/uL (0.0-0.2); Absolute Eosinophil Count 0.43 10^3/uL (0.0-0.7); Absolute Lymphocyte Count 1.63 10^3/uL (1.2-3.4); Absolute Neutrophil Count 6.81 10^3/uL (1.2-6.7); Basophils % 0.6 %; HCT 36.2 % (40.0-50.0); HGB 11.7 g/dL (13.5-17.5); Immature Grans % 1.1 %; Lymphocytes % 15.2 %; MCH 30.8 pg (27.0-33.0); MCHC 32.3 % (32.0-36.0); MCV 95 fL (80-95); MPV 8.9 fL (8.0-11.0); Monocytes % 15.8 %; Neutrophils % 63.3 %; Platelet Count 369 10^3/uL (130-400); RDW 15.1 % (11.8-14.1); RDW-SD 52.8 fL; WBC 10.75 10^3/uL (4.4-10.8)
[2024-09-22 09:33] LABS: Diff Comment Diff Reviewed; RBC Morphology Normal
[2024-09-22 09:46] LABS: ALT 50 U/L (16-63); AST 40 U/L (15-37); Albumin 2.6 g/dL (3.4-5.0); Alkaline Phosphatase 172 U/L (46-116); Anion Gap 8.2 mmol/L (3-11); BUN 25 mg/dL (7-18); Bilirubin, Total 0.43 mg/dL (0.2-1.0); CO2 25.8 mmol/L (21.0-32.0); CREATININE 0.9 mg/dL (0.70-1.30); Chloride 99 mmol/L (98-107); Estimated GFR 90.18 (mL/min/1.73m2); Glucose 132 mg/dL (74-106); Potassium 4.4 mmol/L (3.5-5.1); Sodium 133 mmol/L (136-145)
== END 2024-10-10 23:59 | disposition home or self-care (01) ==
LOC: INF 02:43
PROVIDERS: Nurse Practitioner Family; PCP Nurse Practitioner Family; Visit Provider Internal Medicine Medical Oncology
DX: C15.5 Malignant neoplasm of lower third of esophagus (principal)
CPT/HCPCS: 36591; 80053; 83735; 85025